=== PATIENT | female | born 1970 | race Caucasian/White ===

== ENCOUNTER → 2019-10-10 15:10 | Outpatient (BNVA) | payer MEDICAID, SELFPAY | PROVIDERS: PCP Nurse Practitioner; Visit Provider Nurse Practitioner | DX: I10 Essential (primary) hypertension (principal); F41.9 Anxiety disorder, unspecified; M51.37 Other intervertebral disc degeneration, lumbosacral region | CPT/HCPCS: 80053; 85025 ==

== ENCOUNTER → 2019-10-29 14:56 | Outpatient (BNVA) | payer MEDICAID, SELFPAY | PROVIDERS: PCP Nurse Practitioner; Visit Provider Nurse Practitioner | DX: F41.9 Anxiety disorder, unspecified (principal); D72.829 Elevated white blood cell count, unspecified; E83.52 Hypercalcemia | CPT/HCPCS: 80053; 85025 ==

== ENCOUNTER → 2020-01-03 09:08 | Outpatient (BNVA) | payer MEDICAID, SELFPAY | PROVIDERS: PCP Nurse Practitioner; Visit Provider Nurse Practitioner | DX: E78.5 Hyperlipidemia, unspecified (principal); I10 Essential (primary) hypertension; F41.9 Anxiety disorder, unspecified; M51.37 Other intervertebral disc degeneration, lumbosacral region | CPT/HCPCS: 80053; 80061 ==

== ENCOUNTER → 2020-04-27 15:15 | Outpatient (BNVA) | payer MEDICAID, SELFPAY | PROVIDERS: PCP Nurse Practitioner; Visit Provider Nurse Practitioner | DX: I10 Essential (primary) hypertension (principal) | CPT/HCPCS: 80053; 80061; 85025 ==

== ENCOUNTER 2020-05-20 11:57 | Emergency (ER) | payer MEDICAID, SELFPAY ==
--- NOTE | 2020-05-20 12:06 | XR_ITS ---
WS: [id number] XR foot LT min 3V* [id number] REASON FOR EXAM: left foot pain FINDINGS: No fracture or dislocation identified. No focally no focal bony abnormality. On the lateral view of the foot there is calcification/ossification bridging the distal carpal row wi th the base of one of the metatarsals. On the oblique view of the foot this may involve the base of t he second metatarsal and the third cuneiform. No soft tissue abnormality. XR/XR foot LT min 3V* [id number] IMPRESSION: Abnormality as described above which is of uncertain clinical significance. Thi s could represent calcification in the Lisfranc ligament or possibly a partial coalition. If pain is related to the dorsum of the foot in the region of the se cond metatarsal this could be of clinical importance.
--- NOTE | 2020-05-20 12:06 | XR_ITS ---
WS: [id number] XR wrist LT min 3V* [id number] REASON FOR EXAM: left wrist pain FINDINGS: No cortical disruption or other focal bony abnormality is identified. The joint spaces of the wrist are well preserved. No soft tissue abnormality identified. XR/XR wrist LT min 3V* [id number] IMPRESSION: No acute abnormality identified.
[2020-05-20 12:08] VITALS: PULSE 81; O2SAT 98; BMI 22.7
--- NOTE | 2020-05-20 12:33 | W.ED.FALL ---
HPI - Fall General: Chief Complaint: Fall Stated Complaint: FALL L FOOT PAIN Time Seen by Provider: 05/20/20 12:06 History of Present Illness: HPI Narrative: 50-year-old female patient presents to the emergency department by EMS. She reports a fall, 10 days ago, complaining of left foot pain and left wrist pain. She reports attempted to catch herself with her left wrist. She has noted bruising to the left wrist and swelling to the left foot. She reports has ambulated at home, left foot pain continues with ambulation and continues to swell. She denies head injury, denies neck pain. Reports did not hit her head or lose consciousness with fall. MD complaint: fall Onset (ago): day(s) (10-11 days ago) Fall from: standing Fall witnessed: no Place fall occurred: home Loss of consciousness: None Prolonged down time: no Symptoms prior to fall: none Context: tripped/slipped Location of injury - extremities: Left: arm and foot Severity: moderate Severity scale (1-10): 4 Quality: burning, dull and aching Associated symptoms-after fall: Reports difficulty walking (Due to foot pain); Denies abdominal pain, chest pain or headache(s) Review of Systems General: Reports: 10 or more systems reviewed and unremarkable except in HPI and below Const: Denies: fever(s), chills or diaphoresis Eyes: Denies: blurry vision or eye redness ENMT: Denies: throat pain, dental pain or disequilibrium Card: Denies: chest pain, palpitations or irregular heart rhythm Resp: Denies: dyspnea, productive cough, non-productive cough or wheezing GI: Denies: abdominal pain, nausea or vomiting : Denies: difficulty voiding or dysuria Musc: Denies: back pain Skin/Breast: Denies: rash or pruritus Neuro: Reports: difficulty walking (Due to foot pain); Denies: headache(s), weakness in extremities, frequent falls, behavioral changes or Slurred speech present Arnaud/Lymph: Denies: easy bruising [facility] ED PFSH: Medical History (Updated 05/20/20 @ 12:48 by KEVIN Moyer) Anxiety COPD, mild DDD (degenerative disc disease), lumbosacral Essential (primary) hypertension Hyperlipidemia, unspecified Personal history of nicotine dependence Surgical History History of bilateral tubal ligation Family History Other Cancer Hypertension Denies family history of Bleeding disorder Social History Smoking and tobacco status: current every day smoker Second hand smoke exposure: Yes Smoking risk assessment/counseling performed?: Yes Alcohol intake: unknown Desire information about alcohol rehabilitation?: No Counseling given: No Desire information about substance/drug rehabilitation?: No Counseling given: No Adopted: No Caregiver/support person: No Lives independently: Yes Household members: other Marital status: Single Number of children: 1 service: No History of recent travel: No Current gender identity: Female Physical Exam Const: COMMON NORMALS: no acute distress, patient oriented x3, healthy appearing and alert GENERAL APPEARANCE: cooperative, comfortable and well hydrated HENMT: COMMON NORMALS: normocephalic, Normal external nose present and moist oral mucous membranes HEAD & SCALP: normocephalic NOSE: Normal external nose present Eye: COMMON NORMALS: Equal, round and reactive pupils present and EOMs intact bilaterally GENERAL EYE: appearance normal, both eyes and all related structures PUPIL: Yes Equal, round and reactive pupils present Neck/C-Spine: COMMON NORMALS: full ROM and no lymphadenopathy GENERAL: Yes normal visual inspection and Yes trachea midline CERVICAL SPINE: Yes cervical ROM normal Lymph: LYMPHATIC: no lymphadenopathy noted Chest: COMMONS NORMALS: normal inspection of the chest Resp: COMMON NORMALS: normal respiratory effort and clear to auscultation bilaterally AUSCULTATION: clear to auscultation bilaterally Cardio: COMMON NORMALS: regular rhythm, S1 normal heart sound present and S2 normal heart sound present RHYTHM: regular rhythm HEART SOUNDS: S1 normal heart sound present and S2 normal heart sound present GI: COMMON NORMALS: Soft to palpation and non-tender INSPECTION: Yes normal to inspection PALPATION: Yes Soft to palpation : COMMON NORMALS: Yes no CVA tenderness BLADDER/KIDNEY EXAM: Yes no CVA tenderness Back/Pelvis: COMMON NORMALS: no CVA tenderness and thoracic and lumbar spine normal to inspection Extremity: COMMON NORMALS: normal to inspection and capillary refill normal GENERAL: Yes normal exam except as noted RIGHT UPPER EXTREMITY: Yes wrist Right wrist: Yes inspection (Ecchymosis noted to the left radial styloid area), Yes palpation (Tenderness to area of ecchymosis), Yes ROM (Flexion and extension supination pronation noted) and Yes neurovascular exam (Distally intact without deficit) LEFT LOWER EXTREMITY: Yes foot & digits Left foot and digits: Yes inspection (Edema noted to the proximal and distal foot, dorsal side), Yes palpation (Area of swelling noted to the first MTP lateral foot), Yes ROM (Full range of motion to all digits of the left foot, pain with palpation dorsally, ankle with flexion extension but reproduces pain to the left foot.) and Yes neurovascular exam (Distally intact.) OTHER: pain to the plantar surface of the 3rd-5th MTP - no erythema, increased warmth or discoloration, slight edema present plantar and dorsal Neuro: COMMON NORMALS: patient oriented x3 and no focal motor deficits SENSORIUM/ORIENTATION: Yes alert Psych: COMMON NORMALS: mental status grossly normal, Normal thought process present and cooperative ACTIVITY/MOTOR BEHAVIOR: Yes appropriate eye contact THOUGHT PROCESS: Normal thought process present Skin: COMMON NORMALS: no rashes or lesions noted and turgor normal GENERAL SKIN EXAM: no rashes or lesions noted and turgor normal Course ED course: 50-year-old female patient presents to the emergency room with 10-day onset of left foot pain and left wrist pain following fall she sustained. She reports concern is left foot swelling continues and experiences pain with ambulation. X-ray left wrist without fracture, left foot series revealed abnormality of calcification in the Lisfranc ligament. Podiatry, Dr. Carter out of town, referral was placed with social work supervisor for patient to have appointment. Discussed with patient findings of her foot x-ray, she agrees to follow-up with Dr. Carter at next available appointment. She was given postop shoe and crutches with recommendation to refrain placing pressure on the left foot. She is advised to keep the left foot elevated to help with swelling and pain. Verbalized understanding, agrees to return to emergency department if she develops worsening symptoms such as redness, increased swelling despite elevation or redness of the left leg with swelling. Questions were answered, Vital Signs: Vital signs: Vital Signs Pulse Rate 68 05/20/20 14:40 Pulse Oximetry 96 05/20/20 14:40 MDM - Fall Imaging Data^: Xray Ortho: Radiologist's impression: [address] [place] [address] XRay Report Signed Patient: Guera Mills Unit #: [id number] : 1970 Age/Sex: 50 / F ADM Date: 05/20/20 Loc: ER Room/Bed: Attending Dr: Ordering Provider/Ordering MD: Ita Jack Date of Service: 05/20/20 Procedure(s): XR wrist LT min 3V* [id number] Accession Number(s): [id number] Report Number: [id number] WS: [id number] XR wrist LT min 3V* 32092 REASON FOR EXAM: left wrist pain FINDINGS: No cortical disruption or other focal bony abnormality is identified. The joint spaces of the wrist are well preserved. No soft tissue abnormality identified. XR/XR wrist LT min 3V* [id number] IMPRESSION: No acute abnormality identified. Dictated By: Anthony Price Jr, MD Signed By: Anthony Price Jr, MD Signed Date/Time: 05/20/20 1240 DD/ 1238 Other Imaging: Radiologist's impression: [address] [place] [address] XRay Report Signed Patient: Guera Mills Unit #: [id number] : 1970 Age/Sex: 50 / F ADM Date: 05/20/20 Loc: ER Room/Bed: Attending Dr: Ordering Provider/Ordering MD: Ita Jack Date of Service: 05/20/20 Procedure(s): XR foot LT min 3V* [id number] Accession Number(s): [id number] Report Number: [id number] WS: [id number] XR foot LT min 3V* [id number] REASON FOR EXAM: left foot pain FINDINGS: No fracture or dislocation identified. No focally no focal bony abnormality. On the lateral view of the foot there is calcification/ossification bridging the distal carpal row with the base of one of the metatarsals. On the oblique view of the foot this may involve the base of the second metatarsal and the third cuneiform. No soft tissue abnormality. XR/XR foot LT min 3V* [id number] IMPRESSION: Abnormality as described above which is of uncertain clinical significance. This could represent calcification in the Lisfranc ligament or possibly a partial coalition. If pain is related to the dorsum of the foot in the region of the second metatarsal this could be of clinical importance. Dictated By: Anthony Price Jr, MD Signed By: Anthony Price Jr, MD Signed Date/Time: 05/20/20 1238 DD/ 1229 Discharge Plan Discharge Patient Disposition: Home Clinical Impression: Acute foot pain Qualifiers: Laterality: left Qualified Code(s): M79.672 - Pain in left foot Contusion of left wrist Qualifiers: Encounter type: initial encounter Qualified Code(s): S60.212A - Contusion of left wrist, initial encounter Contusion of left foot Qualifiers: Encounter type: initial encounter Qualified Code(s): S90.32XA - Contusion of left foot, initial encounter Condition: Stable Prescriptions: New naproxen 500 mg tablet 500 mg PO BID PRN (Reason: pain) Qty: 20 RF: 0 No Action albuterol sulfate [ProAir HFA] 90 mcg/actuation HFA aerosol inhaler 2 puff INHALATION Q6H PRN (Reason: shortness of breath or wheezing) Qty: 8.5 RF: 2 atorvastatin [Lipitor] 20 mg tablet 20 mg PO DAILY Qty: 30 RF: 2 gabapentin 400 mg capsule 400 mg PO BID Qty: 60 RF: 2 clonazepam [Klonopin] 0.5 mg tablet 0.5 mg PO BID Qty: 60 RF: 2 lisinopril 10 mg tablet 10 mg PO DAILY Qty: 30 RF: 2 propranolol 20 mg tablet 20 mg PO BID Qty: 60 RF: 2 venlafaxine 150 mg capsule,extended release 24hr 150 mg PO DAILY Qty: 30 RF: 2 [id number] 3.5-10,000-1 mg/mL-unit/mL-% drops,suspension 4 drop EAR-BOTH TID 10 Days Qty: 10 RF: 0 Discharge Orders: Discharge Order (Routine); Ordered 05/20/20 Ordered By: Ita Jack Referrals: Alex Bach, [facility] [Primary Care Provider] - Discharge Diet: Usual diet Discharge Activity: Limit activity as instructed and Use walker/crutches as instructed Patient Instructions: Foot Sprain (ED), Sprains - Wrist Activity Restrictions/Additional Instructions: Referral to podiatry pending, social service will be contacting you with appointment Postop shoe will help with pain, avoid walking barefoot Return to the emergency department if you develop redness, fever or increased pain of the foot or redness swelling of the left calf Keep the left foot elevated to help reduce swelling Limit ambulation/pressure of the left foot to help with pain Cool compresses/alternate with warm moist heat to the area of pain, this may help with pain and swelling Discharge Date/Time: 05/20/20 13:55 Coding Level of Care Code ED Collision Technician for Alf Fwmonica Exam Comprehensive
--- NOTE | 2020-05-20 13:44 | DCPLANNER ---
marina manager was asked to schedule a follow up appointment for patient with ortho. marina manager called the ortho clinic, spoke with Brenda, gave clinic patients information. marina manager was told that patients information would be printed and reviewed. Clinic will call patient with appointment information.
[2020-05-20 14:40] VITALS: PULSE 68; O2SAT 96
--- NOTE | 2020-05-22 14:37 | DCPLANNER ---
Patient has a follow up appointment scheduled for , May 28, 2020 at 9:[address] Carter. Clinic will call patient with appointment information.
--- NOTE | 2020-06-05 18:21 | DCPLANNER ---
Patient had a follow up appointment with ortho - patient did attend appointment.
== END 2020-05-20 13:55 | disposition home or self-care (01) ==
PROVIDERS: Emergency Provider Nurse Practitioner Family; PCP Nurse Practitioner
DX: S90.32XA Contusion of left foot, initial encounter (principal); S60.212A Contusion of left wrist, initial encounter; J44.9 Chronic obstructive pulmonary disease, unspecified; I10 Essential (primary) hypertension; E78.5 Hyperlipidemia, unspecified; F17.210 Nicotine dependence, cigarettes, uncomplicated; W19.XXXA Unspecified fall, initial encounter
CPT/HCPCS: 12345; 73110; 73630; 99281; 99283; E0114

== ENCOUNTER → 2020-06-03 10:55 | Outpatient (BNVA) | payer MEDICAID, SELFPAY | PROVIDERS: PCP Nurse Practitioner; Visit Provider Podiatrist Foot & Ankle Surgery | DX: M79.672 Pain in left foot (principal); M21.612 Bunion of left foot | CPT/HCPCS: 73630 ==

== ENCOUNTER 2020-06-11 11:11 | Outpatient (CLI) | payer MEDICAID, SELFPAY | END 2020-06-11 11:12 | disposition home or self-care (01) | LOC: SPT 11:11 | PROVIDERS: PCP Nurse Practitioner; Visit Provider Podiatrist Foot & Ankle Surgery | DX: Z46.89 Encounter for fitting and adjustment of other specified devices (principal); S90.32XD Contusion of left foot, subsequent encounter; X58.XXXD Exposure to other specified factors, subsequent encounter | CPT/HCPCS: 97760; L4361 ==

== ENCOUNTER → 2020-11-24 15:41 | Outpatient (BNVA) | payer MEDICAID, SELFPAY | PROVIDERS: PCP Nurse Practitioner; Visit Provider Nurse Practitioner | DX: I10 Essential (primary) hypertension (principal); F41.9 Anxiety disorder, unspecified; J44.9 Chronic obstructive pulmonary disease, unspecified; Z87.891 Personal history of nicotine dependence; E78.5 Hyperlipidemia, unspecified; M51.37 Other intervertebral disc degeneration, lumbosacral region | CPT/HCPCS: 80053; 80061; 81003; 84443; 85025; 87077; 87086; 87184 ==

== ENCOUNTER 2021-01-28 11:42 | Outpatient (CLI) | payer MEDICAID, SELFPAY ==
--- NOTE | 2021-01-28 12:00 | MM_ITS ---
WS: [id number] BILATERAL DIGITAL DIAGNOSTIC MAMMOGRAM MAMMOGRAPHY WITH CAD CLINICAL INFORMATION: N63.20 - Unspecified lump in the left breast, unspecified... COMPARISON: 3 TECHNIQUE: Bilateral CC, MLO, and ML views. FINDINGS: The breasts are composed of heterogeneous fibroglandular density, which can limit the detection of sm all underlying mass lesions. Irregular spiculated focal asymmetric density upper outer left breast me asuring 2.7 x 2.9 cm x 1.9 cm in the area of palpable concern. Associated clustered punctate calcific ations. Findings suspicious for neoplasm. Ultrasound is pending. ULTRASOUND BREAST LEFT TECHNIQUE: Ultrasound left breast focused area of concern. CLINICAL INFORMATION: N63.20 - Unspecified lump in the left breast, unspecified... FINDINGS: Ultrasound left breast at the 2:00 position. There is an irregular solid shadowing hypoechoic mass wi th vascularity. This measures approximately 2.3 x 3.4 x 1.8 cm suspicious for neoplasm. Recommend fur ther evaluation with ultrasound-guided biopsy. Ultrasound left axilla shows several lymph nodes the largest lymph node measures 1.8 x 1.5 x 1.0 cm w ith preserved fatty hilum. This also could be sampled at the time of breast biopsy. MM/[place] [id number] IMPRESSION: BI-RADS: 5-Highly Suggestive of Malignancy FOLLOW UP: US Guided Biopsy Recommended RECOMMEND ULTRASOUND-GUIDED BIOPSY LEFT BREAST AND LEFT AXILLA.
--- NOTE | 2021-01-28 12:11 | US_ITS ---
WS: [id number] BILATERAL DIGITAL DIAGNOSTIC MAMMOGRAM MAMMOGRAPHY WITH CAD CLINICAL INFORMATION: N63.20 - Unspecified lump in the left breast, unspecified... COMPARISON: 3 TECHNIQUE: Bilateral CC, MLO, and ML views. FINDINGS: The breasts are composed of heterogeneous fibroglandular density, which can limit the detection of sm all underlying mass lesions. Irregular spiculated focal asymmetric density upper outer left breast me asuring 2.7 x 2.9 cm x 1.9 cm in the area of palpable concern. Associated clustered punctate calcific ations. Findings suspicious for neoplasm. Ultrasound is pending. ULTRASOUND BREAST LEFT TECHNIQUE: Ultrasound left breast focused area of concern. CLINICAL INFORMATION: N63.20 - Unspecified lump in the left breast, unspecified... FINDINGS: Ultrasound left breast at the 2:00 position. There is an irregular solid shadowing hypoechoic mass wi th vascularity. This measures approximately 2.3 x 3.4 x 1.8 cm suspicious for neoplasm. Recommend fur ther evaluation with ultrasound-guided biopsy. Ultrasound left axilla shows several lymph nodes the largest lymph node measures 1.8 x 1.5 x 1.0 cm w ith preserved fatty hilum. This also could be sampled at the time of breast biopsy. US/US breast LT limited* [id number] IMPRESSION: BI-RADS: 5-Highly Suggestive of Malignancy FOLLOW UP: US Guided Biopsy Recommended RECOMMEND ULTRASOUND-GUIDED BIOPSY LEFT BREAST AND LEFT AXILLA.
== END 2021-01-28 11:43 | disposition home or self-care (01) ==
LOC: RADSHAW 11:44
PROVIDERS: PCP Nurse Practitioner; Visit Provider Nurse Practitioner
DX: N63.20 Unspecified lump in the left breast, unspecified quadrant (principal)
CPT/HCPCS: 76642; 77066

== ENCOUNTER 2021-02-18 12:42 | Outpatient (CLI) | payer MEDICAID, SELFPAY ==
--- NOTE | 2021-02-18 13:00 | US_ITS ---
WS: [id number] ULTRASOUND-GUIDED LEFT BREAST BIOPSY HISTORY: Left Breast Mass COMPARISON: 01/28/2021 Procedure, risks and complications are explained to the patient. Medications are reviewed. Consent is obtained. The mass in the LEFT breast is localized with ultrasound. Mass localized to 2:00. Skin is cleansed wi th ChloraPrep and anesthetized with 1% buffered lidocaine. Small dermatome is made. Under sterile con ditions mass is biopsied with a 14-gauge Achieve needle. Patient refused additional biopsies after th e initial biopsy due to pain. Patient admitted to be anesthetized to sleep for this procedure. Francis t has elected not to continue with biopsy. Breast tissue marker (Souqalmal ultrasound enhanced ribbon): None. Patient terminated study before clip or biopsy could be completed. Patient refused additional biopsy. Patient is instructed to return to [facility] or call with any concerns. US/[place] [id number] IMPRESSION: 1. Limited LEFT breast core needle biopsy mass at 2:00. PATHOLOGY: Poorly differentiated invasive ductal carcinoma. Ancillary studies p ending. RECOMMENDATION: Surgical and oncologic follow-up. Patient refused additional biopsy attempts after the first was performed. Latrice nt describes excruciating pain. No lymph node biopsy performed as patient refused additional imaging. The lymph nodes did appear normal in the axilla. Normal fatty darrell. There is no one disc rete nodule to target for biopsy if the patient had permitted.
[2021-02-24 05:26] LABS: Miscellaneous Test See Scanned Lab Rpt
== END 2021-02-18 12:43 | disposition home or self-care (01) ==
PROVIDERS: PCP Nurse Practitioner; Visit Provider Nurse Practitioner
DX: C50.412 Malignant neoplasm of upper-outer quadrant of left female breast
CPT/HCPCS: 19083; 88305; 88361; 88367; 88374

== ENCOUNTER 2021-07-05 09:47 | Outpatient (CLI) | payer MEDICAID, SELFPAY ==
--- NOTE | 2021-07-05 15:11 | ONC CON_ITS ---
Dr. Torres New Patient Note Patient: Guera Mills Unit #: [id number]: 1970 Dicatated By: Jules Torres M.D.Date of Visit: Jul 05, 2021 Onc MED New Patient/Consult Referring Physician: Dr. SHANNA ANN M.D. History of Present Illness: Ms. Guera Mills, is a 51-year-old female who was diagnosed with left breast cancer in February 2021 and at that time her left breast ultrasound-guided biopsy done on February 18, 2021 showed poorly differentiated invasive ductal carcinoma grade 3, ER 99%, SD 45% and HER-2/carin 3+ positive, as per patient she went to see medical oncologist in [facility] and chemotherapy was recommended along with Port-A-Cath placement to facilitate chemotherapy infusion, patient said she got scared of losing here and getting something 'stuck' in her neck, she means Port-A-Cath placement. And decided not to pursue any sort of treatment until recently when she went to see her PMD and then she was referred to Dr. Ann whom she saw on June 25, 2021, patient was referred to medical oncology for further discussion and planning. Patient denies any left breast nipple discharge, denies any new bony pains, denies any weight loss, denies any headaches blurred vision double vision, denies any significant change in left breast mass, denies any left axillary fullness, denies any hemoptysis or hematemesis, denies any jaundice. Patient has history of anxiety disorder, mild COPD, degenerative disc disease involving lumbar sacral area, hypertension. Past Medical History: Ms. Mills's medical history consists of anxiety, chronic obstructive pulmonary disease, degenerative disease of the spine, hyperlipidemia, and hypertension. Past Surgical History: Ms. Mills's surgical/procedural history consists of breast biopsy, tubal ligation, covid vaccine #2 moderna in 2020, covid vaccine #1 moderna in 2020, and colonoscopy in 2010. Medications: Albuterol Sulfate HFA 2 Puff(s) (of 108 (90 base) mcg/act) Aerosol, solution Inhalation q 6 hours PRN, Atorvastatin Calcium 1 Tablet (of 20 mg) Oral daily, clonazePAM 1 Tablet (of 0.5 mg) Oral b.i.d., Effexor XR 1 Capsule (of 150 mg) Capsule SR 24 HR Oral daily, Lisinopril 1 Tablet (of 20 mg) Oral daily, Propranolol HCl 1 Tablet (of 20 mg) Oral b.i.d. Allergies: Morphine Sulfate Social History: Ms. Mills is . She is a daily smoker. She has indicated exposure to the following products: cigarettes. Family History: There is no documented family history. Review Of Symptoms: Review of Systems is not available for this patient. Vital Signs: Performed on Jul 05, 2021 13:18: 3, 6, 22.95, 1.73 sq.m, 66 in, 99 %, 73 /min, 18 /min, 105/72 mm(hg), 97.5 F (LOW), and 142.2 lbs (HIGH). Performance Status: 0 - Fully active, able to carry on all predisease activities without restrictions. (ECOG) Physical Examination: Respiratory - Lungs are clear to auscultation, Cardiovascular - Regular rate and rhythm of heart, Gastrointestinal - Soft, bowel sounds present. Left breast exam shows about 4 cm mass on the left side of subareolar area and palpable left axillary lymphadenopathy, No nipple discharge or retraction Lab/Imaging: Most recent lab results are not available for this patient. Impression: Poorly differentiated invasive ductal carcinoma, grade 3 per ultrasound-guided left breast biopsy done on February 18, 2021, final pathology report shows ER 99%, SD 45%, HER-2/carin 3+ positive and specimen was positive for HER-2 overexpression and gene over amplification. Patient went to [facility] to see a medical oncologist for evaluation, as per patient she was recommended chemotherapy and Port-A-Cath placement, patient got concerned about hair loss and Port-A-Cath placement and decided not to seek any care at that time. Plan: Discussed with patient regarding her disease status and treatment options, patient has locally advanced disease with palpable left axillary lymph nodes, it has been over 4 months since she been diagnosed with breast cancer, patient has aggressive disease, HER-2/carin positive ER strongly positive but SD moderately positive. At this point, will consider CT PET scan, if it shows local regional disease e.g. no distant mets, then will consider neoadjuvant chemotherapy with dose dense Adriamycin Cytoxan every 2 weeks x4 followed by Herceptin Taxol or Taxotere/Perjeta followed by surgical evaluation. Discussed with patient in detail, all the questions were answered, patient may consider systemic therapy, but , For the time being, has agreed for CT PET scan, we will schedule her for CT PET scan and then she will return to clinic after CT PET scan with CBC CMP and BRCA 1 and 2, and for further discussion. Signed By: Jules Torres M.D. <<Signature on File>>
== END 2021-07-05 09:48 | disposition home or self-care (01) ==
PROVIDERS: PCP Nurse Practitioner; Visit Provider Internal Medicine Hematology & Oncology
DX: C50.812 Malignant neoplasm of overlapping sites of left female breast (principal); Z17.0 Estrogen receptor positive status [ER+]; Z79.899 Other long term (current) drug therapy
CPT/HCPCS: 99205

== ENCOUNTER → 2021-11-11 15:10 | Outpatient (BNVA) | payer MEDICAID, SELFPAY | PROVIDERS: PCP Nurse Practitioner; Visit Provider Nurse Practitioner | DX: E55.9 Vitamin D deficiency, unspecified (principal); E78.5 Hyperlipidemia, unspecified; I10 Essential (primary) hypertension | CPT/HCPCS: 80053; 80061; 82306; 82607; 84443; 85025 ==

== ENCOUNTER 2022-02-10 13:25 | Oncology outpatient (recurring) (ONCR) | payer MEDICAID, SELFPAY ==
[2022-02-10 13:47] LABS: Basophils # 0.1 10^3/uL (0.0-0.1); Basophils % 0.8 %; Eosinophils # 0.4 10^3/uL (0.0-0.8); Eosinophils % 4.5 %; Hematocrit 39.4 % (37.0-47.0); Hemoglobin 12.6 g/dL (11.5-15.3); Lymphocytes # 3.2 10^3/uL (0.8-4.8); Lymphocytes % 34.5 %; Mean Corpuscular Hemoglobin 28.6 pg (28.0-34.0); Mean Corpuscular Volume 89.5 fl (81-99); Mean Platelet Volume 10.2 fL (7.4-10.4); Monocytes # 0.5 10^3/uL (0.2-0.9); Monocytes % 5.8 %; Neutrophils # 5.04 10^3/uL (1.8-7.7); Neutrophils % 54.1 %; Nucleated Red Blood Cells % 0 %; Platelet Count 329 10^3/cmm (130-400); Red Cell Distribution Width 13.2 % (12.1-15.1); White Blood Count 9.3 10^3/uL (4.0-10.0)
[2022-02-10 14:02] LABS: Alanine Aminotransferase 8 U/L (0-33); Albumin Level 4.3 g/dL (3.5-5.2); Alkaline Phosphatase 118 IU/L (35-105); Anion Gap 11.7 (5-19); Aspartate Amino Transferase 13 U/L (0-32); Blood Urea Nitrogen 12 mg/dL (6-20); Calcium 8.7 mg/dL (8.5-10.5); Carbon Dioxide 27 mmol/L (22-29); Chloride 104 mmol/L (98-107); Globulin 2.6 g/dL (1.3-4.6); Glomerular Filtration Rate 31.6 mL/min (90-130); Glucose 83 mg/dL (65-115); Osmolality Calculated 287 mOsm/kg (285-295); Potassium 3.7 mmol/L (3.5-5.1); Sodium 139 mmol/L (136-145); Total Bilirubin 0.2 mg/dL (0.15-1.2); Total Protein 6.9 g/dL (6.6-8.7)
== END 2022-02-10 23:59 | disposition home or self-care (01) ==
PROVIDERS: PCP Nurse Practitioner; Visit Provider Internal Medicine Hematology & Oncology
DX: C50.912 Malignant neoplasm of unspecified site of left female breast (principal); Z17.0 Estrogen receptor positive status [ER+]; J44.9 Chronic obstructive pulmonary disease, unspecified; F17.210 Nicotine dependence, cigarettes, uncomplicated; M51.37 Other intervertebral disc degeneration, lumbosacral region
CPT/HCPCS: 36415; 80053; 85025; 99214

== ENCOUNTER → 2022-03-14 10:27 | Outpatient (BNVA) | payer MEDICAID, SELFPAY | PROVIDERS: PCP Nurse Practitioner; Visit Provider Surgery | DX: C50.912 Malignant neoplasm of unspecified site of left female breast (principal); Z95.828 Presence of other vascular implants and grafts | CPT/HCPCS: 99214 ==

== ENCOUNTER 2022-03-18 09:44 | Day surgery (SDC) | payer MEDICAID, SELFPAY ==
[2022-03-18] VITALS (15 sets, daily range): BP systolic 113–158; BP diastolic 84–118; PULSE 69–101; RESP 13–18; TEMP 36.2–36.7; O2SAT 92–99; BMI 20.3
--- NOTE | 2022-03-18 | SCC_ITS ---
Procedure done: 1. Placement of PowerPort in the right internal jugular vein 2. Fluoroscopic guidance and interpretation for placement of catheter 3. Ultrasound guidance to access the right internal jugular vein 31.2 seconds of fluoroscopic guidance, for a cumulative dose of 3.01 mGy, was provided to Dr. Burgos by the radiology department. C-arm images of the chest were saved for the patient's permanent record. [facility]
--- NOTE | 2022-03-18 08:34 | ANES.PREANE2 ---
Pre-Anesthetic Assessment Height/Weight: Height 1.7 m Operation Date: 03/18/22 11:25 Proposed Procedures p Portacath Placement 35713,C50.912(Not Applicable) - Bobo Burgos MD Social Tobacco Pulmonary Chronic Obstructive Pulmonary Disease CV/HEM Hypertension [facility] Osteoarthritis/DJD Breast cancer Neuropsych Anxiety and Headache Anesthetic Plan ASA status: 3 Medications/Allergies Home Medications Medication Instructions Recorded Confirmed Last Taken Type meclizine 25 mg tablet 25 mg PO BID PRN nausea #30 tabs 12/10/21 03/14/22 Unknown Rx albuterol sulfate 90 mcg/actuation 2 puff inhalation Q6H PRN 02/24/22 03/14/22 Unknown Rx aerosol inhaler (ProAir HFA) shortness of breath or wheezing #8.5 grams amitriptyline 25 mg tablet See Rx Instructions PO .at bedtime 02/24/22 03/14/22 Unknown Rx #60 tabs clonazepam 0.5 mg tablet (Klonopin) 0.5 mg PO BID #60 tabs 02/24/22 03/14/22 Unknown Rx ergocalciferol (vitamin D2) 1,250 1,250 mcg PO .weekly #4 caps 02/24/22 03/14/22 Unknown Rx mcg (50,000 unit) capsule fenofibrate nanocrystallized 145 145 mg PO DAILY #30 tabs 02/24/22 03/14/22 Unknown Rx mg tablet (Tricor) hydrocortisone 2.5 % topical cream 1 applic [place] DAILY PRN hemorrhoids 02/24/22 03/14/22 Unknown Rx with perineal applicator #30 grams (Proctozone-HC) lisinopril 20 mg tablet 20 mg PO DAILY #30 tabs 02/24/22 03/14/22 Unknown Rx propranolol 20 mg tablet 20 mg PO BID #60 tabs 02/24/22 03/14/22 Unknown Rx venlafaxine 150 mg 150 mg PO DAILY #30 caps 02/24/22 03/14/22 Unknown Rx capsule,extended release 24 hr Allergies Allergy/AdvReac Type Severity Reaction Status Date / Time morphine Allergy Unknown vomit Verified 03/14/22 10:58 [facility] Medical History Anxiety COPD, mild DDD (degenerative disc disease), lumbosacral 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 Essential (primary) hypertension Hyperlipidemia, unspecified Insomnia Migraine Personal history of nicotine dependence Vitamin D deficiency Surgical History History of bilateral tubal ligation History of colonoscopy 2010 Family History Mother CAD (coronary artery disease) Other Cancer Chronic kidney disease (CKD) Hyperlipidemia Hypertension Psychiatric illness Stroke Suicide Denies family history of Diabetes Clotting disorder Dementia Anesthesia complication Bleeding disorder Lung disease Social History Smoking and tobacco status: current every day smoker Second hand smoke exposure: Yes Smoking risk assessment/counseling performed?: Yes Alcohol intake: never Desire information about alcohol rehabilitation?: No Counseling given: No Desire information about substance/drug rehabilitation?: No Counseling given: No Adopted: No Caregiver/support person: No Lives independently: Yes Household members: other Marital status: Single Number of children: 1 service: No History of recent travel: No Current gender identity: Female Data Anesthesia Cardiac Studies: No Data to Display
--- NOTE | 2022-03-18 09:45 | W.PM.OPSFHP ---
Same Day Surgery H&P Indication for Procedure/HPI DATE OF PROCEDURE: March 18, 2022 CHIEF COMPLAINT/INDICATIONFOR SURGICAL PROCEDURE: Breast cancer requiring port placement PREOP DIAGNOSIS: Breast cancer PLANNED PROCEDURE: Operation Date: 03/18/22 11:25 Proposed Procedures p Portacath Placement 55765,C50.912(Not Applicable) - Bobo Burgos MD Medications/Allergies* Allergies/Adverse Reactions Allergy/AdvReac Type Severity Reaction Status Date / Time morphine Allergy Unknown vomit Verified 03/14/22 10:58 Pertinent History/Comorbid Conditions* Medical History (Updated 02/27/22 @ 12:47 by TYLER Nieto-C) Anxiety COPD, mild DDD (degenerative disc disease), lumbosacral 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 Essential (primary) hypertension Hyperlipidemia, unspecified Insomnia Migraine Personal history of nicotine dependence Vitamin D deficiency Surgical History (Updated 06/25/21 @ 11:31 by Bobo Burgos MD) History of bilateral tubal ligation History of colonoscopy 2010 Family History (Updated 02/10/22 @ 14:37 by Joy Amos LPN) CAD (coronary artery disease) Mother Hyperlipidemia Psychiatric illness Chronic kidney disease (CKD) Suicide Cancer Hypertension Stroke Denies family history of Diabetes Clotting disorder Dementia Anesthesia complication Bleeding disorder Lung disease Social History Smoking and tobacco status: current every day smoker Second hand smoke exposure: Yes Smoking risk assessment/counseling performed?: Yes Alcohol intake: never Desire information about alcohol rehabilitation?: No Counseling given: No Desire information about substance/drug rehabilitation?: No Counseling given: No Adopted: No Caregiver/support person: No Lives independently: Yes Household members: other Marital status: Single Number of children: 1 service: No History of recent travel: No Current gender identity: Female Pertinent Exam Findings alert, oriented x 3 and regular rate & rhythm Recommendations Surgery/Procedure today Coding Level of Care Code Acute 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
[2022-03-18] MEDS: sodium chloride 0.9% 1,000 ML 30 ML IV (10:35)
--- NOTE | 2022-03-18 10:49 | SC_ITS ---
WS: [id number] C-arm fluoroscopy for port placement, 03/18/2022 Clinical Data: intra-op Comparison: None. Findings: Dr. Burgos inserted a port via the right internal jugular vein. The port ends in the superior vena ca va. SC/C-arm FL for CVA [id number] Impression: Insertion right internal jugular venous port.
--- NOTE | 2022-03-18 11:02 | P.ANESASSM_ITS ---
Pre-Anesthetic Assessment Height/Weight: Height 1.7 m Weight 58.967 kg Temp Pulse Resp BP Pulse Ox O2 Del Method 98.0 F 101 H 17 133/97 98 03/18/22 10:00 03/18/22 10:00 03/18/22 10:00 03/18/22 10:00 03/18/22 10:00 03/18/22 10:20 Preop Diagnosis: breast ca Operation Date: 03/18/22 11:25 Proposed Procedures p Portacath Placement 45237,C50.912(Not Applicable) - Bobo Burgos MD Familial anesthetic complications: none Was Beta Mamta taken within 24 hours: Yes Was Clonidine taken within 24 hours: N/A Last intake: Intake Last Liquid Date 03/18/22 Last Liquid Time 05:00 Last Solid Date 03/17/22 Last Solid Time 12:00 Last Intake: 04:00 Social Tobacco and No alcohol 1ppd pack(s) per day 35+ pack years Exam alert, oriented x 3, clear to auscultation bilaterally and regular rate & rhythm Airway Submandibular: within normal limits Cervical ROM: within normal limits Mallampati: Class II Dentition: chipped and loose Comments: Comments: multiple missing decayed Pulmonary None reported CV/HEM Hypertension Chronic Renal Insufficiency Hepatic None reported GI None reported Metabolic None reported breast CA Musc/skel Lower Back Pain and Osteoarthritis/DJD Neuropsych Anxiety, Bipolar and Depression Anesthetic Plan ASA status: 2 Anesthesia: MAC Risk of > 500 ml blood loss (7ml/kg in children): No Medications/Allergies Home Medications Medication Instructions Recorded Confirmed Last Taken Type meclizine 25 mg tablet 25 mg PO BID PRN nausea #30 tabs 12/10/21 03/14/22 Unknown Rx albuterol sulfate 90 mcg/actuation 2 puff inhalation Q6H PRN 02/24/22 03/14/22 U nknown Rx aerosol inhaler (ProAir HFA) shortness of breath or wheezing #8.5 grams amitriptyline 25 mg tablet See Rx Instructions PO .at bedtime 02/24/22 03/14/22 Unknown Rx #60 tabs clonazepam 0.5 mg tablet (Klonopin) 0.5 mg PO BID #60 tabs 02/24/22 03/14/22 Unknown Rx ergocalciferol (vitamin D2) 1,250 1,250 mcg PO .weekly #4 caps 02/24/22 03/14/22 Unknown Rx mcg (50,000 unit) capsule fenofibrate nanocrystallized 145 145 mg PO DAILY #30 tabs 02/24/22 03/14/22 Unknown Rx mg tablet (Tricor) hydrocortisone 2.5 % topical cream 1 applic [place] DAILY PRN hemorrhoids 02/24/22 03/14/22 Unknown Rx with perineal applicator #30 grams (Proctozone-HC) lisinopril 20 mg tablet 20 mg PO DAILY #30 tabs 02/24/22 03/14/22 Unknown Rx propranolol 20 mg tablet 20 mg PO BID #60 tabs 02/24/22 03/14/22 Unknown Rx venlafaxine 150 mg 150 mg PO DAILY 03/18/22 03/18/22 03/17/22 09:00 History capsule,extended release 24 hr (Effexor XR) Allergies Allergy/AdvReac Type Severity Reaction Status Date / Time morphine Allergy Unknown vomit Verified 03/18/22 10:07 Current Medications Generic Name Dose Route Start Last Admin Trade Name Freq PRN Reason Stop Dose Admin Sodium Chloride 1,000 mls @ 30 mls/hr 03/18/22 10:00 03/18/22 10:35 Sodium Chloride 0.9% IV 03/19/22 09:59 30 mls/hr .Q24H GERMAN Administration PFSH Anesthesia Medical History (Updated 03/18/22 @ 09:52 by Bobo Burgos MD) Anxiety COPD, mild DDD (degenerative disc disease), lumbosacral 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 Essential (primary) hypertension Hyperlipidemia, unspecified Insomnia Migraine Personal history of nicotine dependence Vitamin D deficiency Surgical History (Updated 03/18/22 @ 09:52 by Bobo Burgos MD) History of bilateral tubal ligation History of colonoscopy 2011 Port-A-Cath in place (03/18/22) Family History Mother CAD (coronary artery disease) Other Cancer Chronic kidney disease (CKD) Hyperlipidemia Hypertension Psychiatric illness Stroke Suicide Denies family history of Diabetes Clotting disorder Dementia Anesthesia complication Bleeding disorder Lung disease Social History Smoking and tobacco status: current every day smoker Second hand smoke exposure: Yes Smoking risk assessment/counseling performed?: Yes Alcohol intake: never Desire information about alcohol rehabilitation?: No Counseling given: No Desire information about substance/drug rehabilitation?: No Counseling given: No Adopted: No Caregiver/support person: No Lives independently: Yes Household members: other Marital status: Single Number of children: 1 service: No History of recent travel: No Current gender identity: Female Data Anesthesia Cardiac Studies: No Data to Display
[2022-03-18] MEDS: ceFAZolin 2,000 MG in sodium chloride 0.9% (plus) 50 ML 100 MG IV (11:10)
[2022-03-18 11:32] LABS: 25 Hydroxy Vitamin D 28 ng/mL (30-100)
[2022-03-18] MEDS: heparin, porcine 1,000 unit/mL INJ 10 mL 10000 UNIT IRRIGATION (11:35)
[2022-03-18] MEDS: lidocaine 2% INJ 20 mL INJECTION (11:35)
[2022-03-18] MEDS: sodium chloride 0.9% 250 mL Bag 100 ML XX (11:36)
--- NOTE | 2022-03-18 11:53 | XR_ITS ---
WS: [id number] Portable AP upright chest, 03/18/2022 Clinical Data: post-op Comparison: Portable chest, 07/07/2019. Findings: No nodules, masses or effusions are seen. The heart is normal. The pulmonary vascularity is not increased. No pneumonia or pneumothorax is seen. The right internal jugular venous Port-A-Cath e nds in the superior vena cava at the T4 level. XR/XR chest 1V portable [id number] Impression: Satisfactory position of right Port-A-Cath.
--- NOTE | 2022-03-18 12:00 | PM.OP ---
Operative Report Date of procedure: March 18, 2022 Pre-op diagnosis: Left breast cancer requiring central venous access for chemotherapy Post-op diagnosis: same Procedure done: 1. Placement of PowerPort in the right internal jugular vein 2. Fluoroscopic guidance and interpretation for placement of catheter 3. Ultrasound guidance to access the right internal jugular vein Pathology: none sent Surgeon: Bobo Burgos Anesthesia: MAC Condition: stable Disposition: PACU Procedure: The patient was taken to the Operating Room and the chest and neck bilaterally were prepped and draped in a sterile manner after the antibiotic had been administered and shoulder rolls had been placed. 1% lidocaine with 0.5% Marcaine was infiltrated at the side at the site of the planned around the left subclavian vein. I was unable to access the right subclavian vein. An ultrasound of the right internal jugular vein revealed patent flow, no thrombus. An introducer needle was then used to access the right internal jugular vein and after withdrawing blood syringe was removed and a guidewire passed under fluoroscopy into the superior vena cava. The site of the planned port was then marked on the chest and a 15 blade was used to make a 3 cm skin incision this was extended into the subcutaneous tissue using electrocautery and a subcutaneous pocket over the pectoralis fascia was created 2-0 Vicryl suture was used to suture the port to the pectoral fascia in the pocket on 3 sides. The catheter, after having been flushed with hep saline, was attached to the tunneler and a tunnel created between the port site and the internal jugular vein entry site. Under fluoroscopy the dilator sheath was passed over the guidewire into the proximal superior vena cava. The inner dilator was removed and the sheath left behind and the catheter was introduced through the peel-away sheath with the tip in the superior vena cava. The peel-away sheath was removed. The proximal end of the catheter was cut to the right size and was attached to the port. Using a Tovar needle the port was accessed, it withdrew blood easily and flushed easily. A final 5cc of heparin was used to flush the PowerPort. The subcutaneous tissue was approximated using interrupted 3-0 Vicryl sutures and the skin at the introducer site and the port site was closed using subcuticular running 4-0 Monocryl sutures. Surgical glue was applied and the patient was stable throughout the procedure. Fluoroscopic guidance and interpretation was performed for introduction of the guidewire in the right internal jugular vein, passage of dilator and placement of catheter tip in the distal superior vena cava
--- NOTE | 2022-03-18 12:15 | SUR.PHASEI ---
patient into pacu able to wake but drowsy. states no pain. on room air with sats at 97%. dressing to right upper chest dry and intact.
[2022-03-18] MEDS: fentaNYL 50 mcg/mL INJ 2mL IVP (12:20)
[2022-03-18] MEDS: HYDROmorphone 1 mg/mL INJ 1 mL 0.5 MG IVP (12:37)
[2022-03-18] MEDS: acetaminophen 1,000 MG/100 ML PIGGYBACK 400 MG IV (12:38)
--- NOTE | 2022-03-18 12:38 | PM.MISC ---
Miscellaneous Note Purpose of Documentation: Patient having muscle spasm in right posterior lateral neck with exquisite tender point at C5 posterior tubercle. Strain counterstrain not providing relief. APAP ordered. Will hold on ketorolac d/t renal dysfunction.
--- NOTE | 2022-03-18 13:47 | ANE.PACU2 ---
Inpatient post-anesthesia follow up: Airway intact: Yes Vital signs: Temperature 97.3 F Pulse Rate 82 Respiratory Rate 18 Blood Pressure 135/94 Pulse Oximetry 99 Oxygen Delivery Me thod Room Air Oxygen Flow Rate Fraction of Inspir ed Oxygen Hydration adequate: Yes Nausea and vomiting: No Pain level: 4 Mental status: Baseline
== END 2022-03-18 13:43 | disposition home or self-care (01) ==
PROVIDERS: PCP Nurse Practitioner; Visit Provider Surgery
PROC: (CPT 36561; principal; 2022-03-18 11:25)
DX: C50.912 Malignant neoplasm of unspecified site of left female breast (principal); F17.200 Nicotine dependence, unspecified, uncomplicated; I10 Essential (primary) hypertension; F41.9 Anxiety disorder, unspecified; J44.9 Chronic obstructive pulmonary disease, unspecified; E78.5 Hyperlipidemia, unspecified
CPT/HCPCS: 36561; 36415; 71045; 77001; 82306; C1788; J1170; J1644; J2250; J2704; J3010; J3490; J7030; J7050

== ENCOUNTER → 2022-04-15 10:33 | Outpatient (BNVA) | payer MEDICAID, SELFPAY | PROVIDERS: PCP Nurse Practitioner; Visit Provider Surgery | DX: C50.912 Malignant neoplasm of unspecified site of left female breast (principal) | CPT/HCPCS: 99213 ==

== ENCOUNTER 2022-05-09 13:30 | Oncology outpatient (recurring) (ONCR) | payer MEDICAID, SELFPAY | END 2022-05-13 23:59 | disposition home or self-care (01) | PROVIDERS: PCP Nurse Practitioner; Visit Provider Internal Medicine Hematology & Oncology | DX: C50.812 Malignant neoplasm of overlapping sites of left female breast (principal); Z45.2 Encounter for adjustment and management of vascular access device | CPT/HCPCS: 96523; 99214 ==

== ENCOUNTER → 2022-05-12 13:23 | Outpatient (BNVA) | payer MEDICAID, SELFPAY | PROVIDERS: PCP Nurse Practitioner; Visit Provider Surgery | DX: C50.912 Malignant neoplasm of unspecified site of left female breast (principal) | CPT/HCPCS: 99213 ==

== ENCOUNTER → 2022-05-18 10:29 | Outpatient (BNVA) | payer MEDICAID, SELFPAY | PROVIDERS: PCP Nurse Practitioner; Visit Provider Surgery | DX: C50.912 Malignant neoplasm of unspecified site of left female breast (principal) | CPT/HCPCS: 99212 ==

== ENCOUNTER → 2022-05-25 07:40 | Outpatient (BNVA) | payer MEDICAID, SELFPAY | PROVIDERS: PCP Nurse Practitioner; Visit Provider Surgery | DX: C50.912 Malignant neoplasm of unspecified site of left female breast (principal) | CPT/HCPCS: 99213 ==

== ENCOUNTER 2022-06-27 15:31 | Observation (INO) | payer MEDICAID, SELFPAY ==
[2022-06-24 17:07] VITALS: BMI 19.5
[2022-06-27] VITALS (23 sets, daily range): BP systolic 113–144; BP diastolic 81–103; PULSE 65–91; RESP 12–18; TEMP 36.1–36.7; O2SAT 92–100
--- NOTE | 2022-06-27 | NM_ITS ---
WS: [id number] SENTINEL NODE TECHNIQUE: Left sentinel node injection CLINICAL INFORMATION: LEFT BREAST CANCER COMPARISON: None. PROCEDURE: The procedure including risks, benefits, and complications were discussed; the patient agr eed to proceed. Patient was prepped and draped in usual sterile fashion. Timeout was performed. Subse quently, 0.87 mCi technetium 99m lymphoseek was injected into the subcutaneous soft tissues upper out er quadrant. Patient tolerated the procedure well with no immediate complications. FL/NM sentinel node inject [id number] IMPRESSION: Uncomplicated LEFT breast sentinel node injection with a total dose of 0.87 mCi .
--- NOTE | 2022-06-27 11:12 | ANES.PREANE2 ---
Pre-Anesthetic Assessment Height/Weight: Height 1.7 m Weight 56.699 kg O2 Del Method 06/27/22 10:41 Preop Diagnosis: Left breast cancer Operation Date: 06/27/22 12:15 Proposed Procedures p [id number] left total mastectomy wiht left axilla lymph node bx C50.912(Left) - Piter Dominguez MD s Sentinal Lymph Node Biopsy(Left) - Piter Dominguez MD Familial anesthetic complications: None Was Beta Mamta taken within 24 hours: Yes Was Clonidine taken within 24 hours: N/A Last intake: Intake Last Liquid Date 06/26/22 Last Liquid Time 22:30 Last Solid Date 06/26/22 Last Solid Time 18:00 Social Tobacco and No alcohol Exam alert, oriented x 3, clear to auscultation bilaterally and regular rate & rhythm Airway Mallampati: Class III Dentition: chipped, loose and other (poor dentition) Pulmonary Chronic Obstructive Pulmonary Disease CV/HEM Hypertension Chronic Renal Insufficiency Metabolic Hyperlipidemia Anesthetic Plan ASA status: 3 Anesthesia: General Risk of > 500 ml blood loss (7ml/kg in children): No Medications/Allergies Home Medications Medication Instructions Recorded Confirmed Last Taken Type meclizine 25 mg tablet 25 mg PO BID PRN nausea #30 tabs 12/10/21 06/24/22 Unknown Rx hydrocortisone 2.5 % topical cream 1 applic NE DAILY PRN hemorrhoids 02/24/22 06/27/22 06/06/22 Rx with perineal applicator #30 grams (Proctozone-HC) albuterol sulfate 90 mcg/actuation 2 puff inhalation Q6H PRN 05/02/22 06/27/22 06/27/22 Rx aerosol inhaler (ProAir HFA) shortness of breath or wheezing #8.5 grams clonazepam 0.5 mg tablet (Klonopin) 0.5 mg PO BID #60 tabs 05/02/22 06/27/22 06/26/22 Rx fenofibrate nanocrystallized 145 145 mg PO DAILY #30 tabs 05/02/22 06/27/22 06/26/22 Rx mg tablet (Tricor) lisinopril 20 mg tablet 20 mg PO DAILY #30 tabs 05/02/22 06/27/22 06/26/22 Rx propranolol 20 mg tablet 20 mg PO BID #60 tabs 05/02/22 06/27/22 06/27/22 08:00 Rx venlafaxine 150 mg 150 mg PO DAILY #30 caps 05/02/22 06/27/22 06/27/22 08:00 Rx capsule,extended release 24 hr (Effexor XR) amitriptyline 25 mg tablet 250 mg PO .at bedtime 06/24/22 06/27/22 06/26/22 History Allergies Allergy/AdvReac Type Severity Reaction Status Date / Time morphine Allergy Unknown vomit Verified 06/24/22 17:01 [facility] Anesthesia Medical History Anxiety COPD, mild DDD (degenerative disc disease), lumbosacral 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 Essential (primary) hypertension Hyperlipidemia, unspecified Insomnia Migraine Personal history of nicotine dependence Vitamin D deficiency Surgical History History of bilateral tubal ligation History of colonoscopy 2011 Port-A-Cath in place (03/18/22) Family History Mother CAD (coronary artery disease) Other Cancer Chronic kidney disease (CKD) Hyperlipidemia Hypertension Psychiatric illness Stroke Suicide Denies family history of Diabetes Clotting disorder Dementia Anesthesia complication Bleeding disorder Lung disease Social History Smoking and tobacco status: current every day smoker Second hand smoke exposure: Yes Smoking risk assessment/counseling performed?: Yes Alcohol intake: never Desire information about alcohol rehabilitation?: No Counseling given: No Desire information about substance/drug rehabilitation?: No Counseling given: No Adopted: No Caregiver/support person: No Lives independently: Yes Household members: other Marital status: Single Number of children: 1 service: No History of recent travel: No Current gender identity: Female Data Anesthesia Cardiac Studies: No Data to Display
[2022-06-27] MEDS: sodium chloride 0.9% 1,000 ML 30 ML IV (11:17)
[2022-06-27] MEDS: acetaminophen 1,000 MG/100 ML PIGGYBACK 400 MG IV (11:19)
[2022-06-27] MEDS: heparin 5,000 unit/mL INJ 1 mL 2000 UNIT SUBCUT (11:26)
--- NOTE | 2022-06-27 11:41 | P.HP_ITS ---
Same Day Surgery H&P Indication for Procedure/HPI DATE OF PROCEDURE: June 27, 2022 CHIEF COMPLAINT/INDICATIONFOR SURGICAL PROCEDURE: Left breast cancer PREOP DIAGNOSIS: Left breast cancer PLANNED PROCEDURE: Operation Date: 06/27/22 12:15 Proposed Procedures p [id number] left total mastectomy wiht left axilla lymph node bx C50.912(Left) - Piter Dominguez MD s Sentinal Lymph Node Biopsy(Left) - Piter Dominguez MD 05/12/2022 This is a pleasant 52 years old female patient with diagnosis of left breast cancer back in February 2021 that showed poorly differentiated invasive ductal carcinoma with ER positive MS positive and HER2 positive, at some point chemotherapy was recommended and it seems that the patient did not pursue it and she did have at some point a PowerPort placement by my partner Dr. Aubrey aguilar in June 2021.? Patient undergone a PET CT scan and it took place in September 2021 that showed; A?1.4 x 2.2 cm mass in her upper outer quadrant of left breast no left axillary lymphadenopathy, there are 2 lytic osseous lesion at T8 and L1 consistent with osseous metastatic disease.? Patient denies any mid back pain but chronic lower back pain.? No lower extremity numbness, no urine or stool incontinence, no jaundice, no headaches no blurred vision double vision, no nipple discharge, no overlying skin changes A repeat PET CT scan was done; on April 09, 2022 shows there has been marginal improvement in left breast mass, now with SUV of 3.8 compared to 4.4 previously.? Left axillary lymph nodes are unchanged from prior study and remained FDG negative.? Reactive bilateral jugulodigastric nodes uptake seen previously has normalized on the study.? Osseous metastatic disease at T8 is unchanged with SUV of 4.6 and L1 lesion is improved with SUV of 3.7 compared to 5.5 previously no new lesion. Patient continues to show no interest in chemotherapy.? And she was referred to my practice today for mastectomy with a sentinel lymph node biopsy of the left axilla. Previous breast biopsies not applicable Personal or family history of breast cancer not applicable Age of menarche 15 History of menstrual cycles irregular cycle History of control pills for few years Obstetric history? A0 ectopic Breast-feeding history not applicable 05/18/2022 Patient comes today for follow-up as she did have questions and concerns about her elective left total mastectomy with sentinel lymph node biopsy.? Regarding immediate reconstruction and other questions that she prefers to have it asked in person.? Also patient was concerned to be discharged the same day versus keeping her overnight. 05/25/2022 Patient comes today for follow-up as she did have some inquiries regarding her surgery which is scheduled for June 13.? She was interested to remove her port and I did advise to hold off till we have the final pathology back and then she can revisit about potential chemotherapy with medical oncology instead of burning bridges and remove the port now and may change her mind that she would pursue treatment thereafter.? Also the patient requested a print out regarding her surgery date which my staff will be accommodating that. Patient had mentioned that she has court appointment on the and she wanted to make sure that this will not affect or interfere with her surgery and it sounded it should not. 06/27/2022 Patient is coming today for a total left mastectomy and sentinel lymph node biopsy of the left axillary lymph nodes ROS All systems have been reviewed negative except as for the above or per problem list. Medications/Allergies* Home Medications Medication Instructions Recorded Confirmed Type amitriptyline 25 mg tablet 250 mg PO .at bedtime 06/24/22 06/27/22 History Allergies/Adverse Reactions Allergy/AdvReac Type Severity Reaction Status Date / Time morphine Allergy Unknown vomit Verified 06/27/22 11:42 Current Medications: Generic Name Dose Route Start Last Admin Trade Name Freq PRN Reason Stop Dose Admin Sodium Chloride 1,000 mls @ 30 mls/hr 06/27/22 10:45 06/27/22 11:17 Sodium Chloride 0.9% IV 06/28/22 10:44 30 mls/hr .Q24H GERMAN Administration Pertinent History/Comorbid Conditions* Medical History (Updated 02/27/22 @ 12:47 by MENA Nieto) Anxiety COPD, mild DDD (degenerative disc disease), lumbosacral 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 Essential (primary) hypertension Hyperlipidemia, unspecified Insomnia Migraine Personal history of nicotine dependence Vitamin D deficiency Surgical History (Updated 03/18/22 @ 09:52 by Bobo Burgos MD) History of bilateral tubal ligation History of colonoscopy 2011 Port-A-Cath in place (03/18/22) Family History (Updated 06/30/22 @ 14:37 by Joy Amos LPN) CAD (coronary artery disease) Mother Hyperlipidemia Psychiatric illness Chronic kidney disease (CKD) Suicide Cancer Hypertension Stroke Denies family history of Diabetes Clotting disorder Dementia Anesthesia complication Bleeding disorder Lung disease Social History Smoking and tobacco status: current every day smoker Second hand smoke exposure: Yes Smoking risk assessment/counseling performed?: Yes Alcohol intake: never Desire information about alcohol rehabilitation?: No Counseling given: No Desire information about substance/drug rehabilitation?: No Counseling given: No Adopted: No Caregiver/support person: No Lives independently: Yes Household members: other Marital status: Single Number of children: 1 service: No History of recent travel: No Current gender identity: Female Pertinent Exam Findings oriented x 3, operative site marked (Left breast exam was done in the presence of female nursing staff Silvia) and procedure specific exam findings (Abdominal exam nontender nondistended soft) Recommendations Surgery/Procedure today (Left total mastectomy with sentinel for biopsy of the left axilla) Coding Level of Care Code 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
[2022-06-27 12:07] LABS: Blood Urea Nitrogen 26 mg/dL (6-20); Calcium 8.9 mg/dL (8.5-10.5); Carbon Dioxide 23 mmol/L (22-29); Chloride 103 mmol/L (98-107); Glomerular Filtration Rate 29.4 mL/min (90-130); Glucose 69 mg/dL (65-115); Osmolality Calculated 283 mOsm/kg (285-295); Sodium 135 mmol/L (136-145)
[2022-06-27] MEDS: ceFAZolin 2,000 MG in sodium chloride 0.9% (plus) 50 ML 100 MG IV (12:08)
[2022-06-27 12:11] LABS: Anion Gap 14.8 (5-19); Potassium 5.8 mmol/L (3.5-5.1)
--- NOTE | 2022-06-27 12:12 | NM_ITS ---
WS: [id number] SENTINEL NODE TECHNIQUE: Left sentinel node injection CLINICAL INFORMATION: LEFT BREAST CANCER COMPARISON: None. PROCEDURE: The procedure including risks, benefits, and complications were discussed; the patient agr eed to proceed. Patient was prepped and draped in usual sterile fashion. Timeout was performed. Subse quently, 0.87 mCi technetium 99m lymphoseek was injected into the subcutaneous soft tissues upper out er quadrant. Patient tolerated the procedure well with no immediate complications.
[2022-06-27] MEDS: isosulfan blue 10 mg/mL SDV 5mL SUBCUT (12:44)
[2022-06-27] MEDS: lidocaine 1% INJ 20 mL INJECTION (12:54)
--- NOTE | 2022-06-27 14:12 | PM.OP ---
Operative Report Date of procedure: June 27, 2022 Pre-op diagnosis: Preop Diagnosis Left breast cancer Procedure done: Left total mastectomy and left axilla sentinel lymph node biopsy Implants: Olegario-Pressley drains x2 Specimens removed/disposition: Left total mastectomy short sutures marked superior and long sutures marked [place] lymph node #1 in vivo 130 and ex vivo 7 Surgeon: Piter Dominguez MD Web Content Director: Surgical manuel Alfaro and Ita Circulating nurse had Anesthesia: General (COMMUNICATIONS CONSULTANT Glenn Hayden) Estimated blood loss (mL): 50 Procedure: In the nuclear medicine suite, the patient undergone injection of the appropriate nuclear active material. Few hours later, the patient was taken to the operating room Patient was identified in holding area and the left breast was marked by me in the presence of female nursing staff Silvia,Patient was brought then to the operating room and the site of surgery was confirmed. Immediate time-out was done verifying the patient's name/date of /planned procedure and destination after the procedure, all were in agreement. SCDs confirmed to be functioning, preoperative antibiotics administered per protocol, and beta julian protocol was confirmed, appropriate positioning of the patient was done by me and the nursing staff. Both breasts chest wall axilla and the whole left upper extremity and neck were prepped and draped in the usual sterile fashion, the right upper extremity were placed in a stockinette to allow mobilization of the arm during axillary dissection. Hand-held gamma probe was used to identify the location of the hottest spot in the axilla. Noticed that the patient had an enlarged left breast mass. Lymphazurin blue dye was injected at the subareolar region and around the mass, this was massaged gently for 5 minutes, again hand-held probe was used to identify the location of the hottest spot in the axilla. Prior to the incision, incision was made over the coinciding with the superior flap of the mastectomy incision, after appropriate dissection, the probe was placed in contact with the node/stained blue, each lymph node was excised in its entirety. Miguel counts as follows [place] lymph node #1 in vivo 130,ex vivo 7 that was passed to the circulating nurse The remaining skin incision was made that encompassed the nipple area complex and the previous biopsy scar passed in a generally transverse/oblique direction across the breast Flaps were raised in the avascular plane between the subcutaneous tissue and breast tissue from the clavicle superiorly, the sternum medially, the anterior rectus sheath inferiorly, and anterior border of the latissimus dorsi muscle laterally. Hemostasis was achieved of the flaps. Next the breast tissue underlying pectoralis fascia were excised from the pectoralis major muscle, progressing from medially to laterally in the avascular plane. At the lateral border of the pectoralis major muscle, the breast tissue was swung laterally,. The medial pectoral neurovascular bundle was identified and preserved. The thoracodorsal bundle was identified and safeguarded, the long thoracic nerve then identified along the edge of the serratus anterior on the chest wall and preserved, nerve to latissimus dorsi was preserved. Nerves were tested and muscles were twitching The specimen consisting of breast and attached pema tissue then excised by dividing the remaining lateral pedicle and sent for permanent pathology. Specimen was marked as short superior, and long sutures lateral The wound was bipin irrigated and hemostasis was achieved. Following that 2 ABDULKADIR drains 10 Greek were placed and brought out through the inferior flap, 1 towards the axilla marked #2 and the other towards the left pectoral region worked #1, drains were stitched to the skin using 2-0 nylon. Wound was then closed using deep subdermal 2-0 Vicryl , followed by skin kati, dry dressing, drain dressings, Telfa, fluffs on top and sports bra was applied. Counts of needles, sponges and instruments were completed at the end of the procedure I was present for the whole entire procedure Patient was then extubated and taken to the recovery room in stable condition
--- NOTE | 2022-06-27 15:00 | SUR.PHASEI ---
1431 PT TO PACU 5 PT SLEEPY WITH GOOD RESP EFFORT PER 8L MASK, HOB AT 30 DEGREES, LT BREAST DRESSING D/I SUPPORT BRA IN PLACE WITH ABDULKADIR X 2 COMPRESSED WITH GOOD SUCTION MAINTAINED. IV TO RT WRIST #20 WITH NS 150 ML UP AT KVO. BILAT SCD ON AND WORKING. MONITOR SR IWTH NO ECTOPY NOTED.
--- NOTE | 2022-06-27 15:08 | SUR.PHASEI ---
1300 PT AWAKES TO TOUCH, NOW, PT ON RA TRIAL,SATS MAINTAINED AT 94 % PT REMAINS VERY GROGGY AND QUICKLY BACK TO SLEEP , PT ORIENTED TO NAME ONLY. PT ENCOURAGED TO COUGH AND DEEP BREATH, PT DOES NOT FOLLOW COMMANDS AT THIS TIME.
--- NOTE | 2022-06-27 15:19 | SUR.PHASEI ---
PT WAKES UP TO TOUCH, TAKING SMALL ICE CHIPS PT KNOWS NAME VERBALIZED NO PAIN PT DENIES COLD. WARM BLANKET TO PT ON ARRIVAL. DRESSING D/I STILL UNCHANGED.
--- NOTE | 2022-06-27 15:51 | SUR.PHASEI ---
PT FAMILY UPDATED AND IN TO SEE PT BEFORE LEAVING, PT AWAKES AND TALKS TO HER FRIEND, KNOWS SHE IS STAYING THEN QUICKLY BACK TO SLEEP VERBAL REPORT CALLED TO FLOOR. DRESSING D/I
--- NOTE | 2022-06-27 15:55 | ANE.PACU2 ---
Inpatient post-anesthesia follow up: Airway intact: Yes Vital signs: Temperature 97.6 F Pulse Rate 70 Respiratory Rate 17 Blood Pressure 131/91 Pulse Oximetry 97 Oxygen Delivery Me thod Nasal Cannula Oxygen Flow Rate 3 Fraction of Inspir ed Oxygen Hydration adequate: Yes Nausea and vomiting: No Pain level: 2 Mental status: Baseline
[2022-06-27] MEDS: sodium chloride 0.9% 1,000 ML 50 ML IV (16:21)
[2022-06-27] MEDS: HYDROcodone-acetaminophen 5-325 mg Tablet 1 TAB PO ×2 (16:23→23:27)
[2022-06-27] MEDS: famotidine 20 mg/2 mL INJ IVP (16:23)
[2022-06-27] MEDS: acetaminophen 325 mg Tablet 650 MG PO (16:24)
[2022-06-27] MEDS: CLONazepam 0.5 mg Tablet PO (21:15)
[2022-06-28] MEDS: famotidine 20 mg/2 mL INJ IVP (04:10)
[2022-06-28 04:16] VITALS: BP 128/84; PULSE 90; RESP 16; O2SAT 95
[2022-06-28 04:16] LABS: Hematocrit 33.1 % (37.0-47.0)
--- NOTE | 2022-06-28 06:13 | PM.SDS ---
Short Stay Summary Providers Date of Admit/Discharge: 06/28/22 Attending Provider: Piter Dominguez MD Primary Care Provider: MENA Nieto Chief Complaint: C50.912 HPI History of Present Illness Guera Mills is a 52 year old female Review of Systems General: Reports: 10 or more systems reviewed and unremarkable except in HPI and below Home Meds/Allergies Home Medications and Allergies Home Medications Medication Instructions Recorded Confirmed Type amitriptyline 25 mg tablet 250 mg PO .at bedtime 06/24/22 06/27/22 History Allergies Allergy/AdvReac Type Severity Reaction Status Date / Time morphine Allergy Unknown vomit Verified 06/28/22 06:13 PFSH Acute PFSH: Medical History Anxiety COPD, mild DDD (degenerative disc disease), lumbosacral 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 Essential (primary) hypertension Hyperlipidemia, unspecified Insomnia Migraine Personal history of nicotine dependence Vitamin D deficiency Surgical History History of bilateral tubal ligation History of colonoscopy 2011 Port-A-Cath in place (03/18/22) Family History Mother CAD (coronary artery disease) Other Cancer Chronic kidney disease (CKD) Hyperlipidemia Hypertension Psychiatric illness Stroke Suicide Denies family history of Diabetes Clotting disorder Dementia Anesthesia complication Bleeding disorder Lung disease Social History Smoking and tobacco status: current every day smoker Second hand smoke exposure: Yes Smoking risk assessment/counseling performed?: Yes Alcohol intake: never Desire information about alcohol rehabilitation?: No Counseling given: No Desire information about substance/drug rehabilitation?: No Counseling given: No Adopted: No Caregiver/support person: No Lives independently: Yes Household members: other Marital status: Single Number of children: 1 service: No History of recent travel: No Current gender identity: Female Vitals/I&O/Wt Last Vital Signs Temp 98.1 F 06/27/22 23:29 Pulse 90 06/28/22 04:16 Resp 16 06/28/22 04:16 BP 128/84 06/28/22 04:16 Pulse Ox 95 06/28/22 04:16 O2 Del Method 06/28/22 04:16 O2 Flow Rate 2 06/27/22 18:25 06/27/22 06/27/22 06/28/22 14:59 22:59 06:59 Intake Total 150 / 150 Output Total 50 / 50 90 / 140 Balance 100 / 100 -90 / 10 Physical Exam Narrative: Patient is conscious alert oriented X3 No apparent distress BMI 19.6 Head and neck examination PERRLA no masses no cervical lymphadenopathy no jaundice Chest is clear bilateral,abscence of Rhonchi or wheezes,no surgical emphysema Left pectoral area shows a viable flaps. Minor dusky changes of the superior flap yet stable, drains in place with thibodeaux colored output. Physical exam was done in the presence of female solar photovoltaic designer nursing staff. Abdomen nontender nondistended soft no organomegaly guarding or rigidity/no signs of peritonitis Extremities no cyanosis no clubbing no edema Hospital Course Hospital Course I elected to keep the patient in an observation status overnight in the hospital, for appropriate pain control. Continue to have stable vital signs adequate urine output and pain under control. Tolerated p.o. intake. Repeat labs in the morning showed slight drift in H&H and there was a hemolyzed sample so the potassium level was repeated and was within normal limits. Patient maintained appropriate course post mastectomy and sentinel lymph node biopsy. Met the appropriate and safe criteria to be discharged home with specific instructions and education regarding wound care as well as drain care. Discharge Summary Patient was discharged home with education regarding wound and drain care. With the plan to follow-up with me in the office in 10 days. SSS Data Data Completed and Pending: Pending at discharge Category Date Time Status Hemoglobin and He matocrit AM LABS Lab 06/29/22 04:00 Ordered Hemoglobin and He matocrit AM LABS Lab 06/30/22 04:00 Ordered Potassium Stat Lab 06/28/22 05:55 Ordered NM lymphatics/lym ph node [id number] Rout ine Nuc Med 06/27/22 12:12 Taken Pathology: Surgic al [PTH] Routine Pth 06/27/22 13:53 Received Procedures Performed: Procedure done: Left total mastectomy and left axilla sentinel lymph node biopsy Implants: Olegario-Pressley drains x2 Specimens removed/disposition: Left total mastectomy short sutures marked superior and long sutures marked [place] lymph node #1 in vivo 130 and ex vivo 7 Surgeon: Piter Dominguez MD Shelf Stocker: Surgical manuel Alfaro and Ita Circulating nurse had Anesthesia: General (BUILDING RENTAL MANAGER Glenn Hayden) Estimated blood loss (mL): 50 Procedure: In the nuclear medicine suite, the patient undergone injection of the appropriate nuclear active material. Few hours later, the patient was taken to the operating room Patient was identified in holding area and the left breast was marked by me in the presence of female nursing staff Silvia,Patient was brought then to the operating room and the site of surgery was confirmed.? Immediate time-out was done verifying the patient's name/date of /planned procedure and destination after the procedure, all were in agreement. SCDs confirmed to be functioning, preoperative antibiotics administered per protocol, and beta julian protocol was confirmed, appropriate positioning of the patient was done by me and the nursing staff. Both breasts chest wall axilla and the whole left upper extremity and neck were prepped and draped in the usual sterile fashion, the right upper extremity were placed in a stockinette to allow mobilization of the arm during axillary dissection. Hand-held gamma probe was used to identify the location of the hottest spot in the axilla.? Noticed that the patient had an enlarged left breast mass. Lymphazurin blue dye was injected at the subareolar region and around the mass, this was massaged gently for 5 minutes, again hand-held probe was used to identify the location of the hottest spot in the axilla.? Prior to the incision, incision was made over the coinciding with the superior flap of the mastectomy incision, after appropriate dissection, the probe was placed in contact with the node/stained blue, each lymph node was excised in its entirety. ?Miguel counts as follows [place] lymph node #1 in vivo 130,ex vivo 7 that was passed to the circulating nurse. There was no other activity is detected. The remaining skin incision was made that encompassed the nipple area complex and the previous biopsy scar passed in a generally transverse/oblique direction across the breast? Flaps were raised in the avascular plane between the subcutaneous tissue and breast tissue from the clavicle superiorly, the sternum medially, the anterior rectus sheath inferiorly, and anterior border of the latissimus dorsi muscle laterally. Hemostasis was achieved of the flaps. Next the breast tissue underlying pectoralis fascia were excised from the pectoralis major muscle, progressing from medially to laterally in the avascular plane.? At the lateral border of the pectoralis major muscle, the breast tissue was swung laterally,. ?The medial pectoral neurovascular bundle was identified and preserved.? The thoracodorsal bundle was identified and safeguarded, the long thoracic nerve then identified along the edge of the serratus anterior on the chest wall and preserved, nerve to latissimus dorsi was preserved. Nerves were tested and muscles were twitching ?The specimen consisting of breast and attached pema tissue then excised by dividing the remaining lateral pedicle and sent for permanent pathology. Specimen was marked as short superior, and long sutures lateral The wound was bipin irrigated and hemostasis was achieved. Following that 2 ABDULKADIR drains 10 Green[place]ic were placed and brought out through the inferior flap, 1 towards the axilla marked #2 and the other towards the left pectoral region worked #1, drains were stitched to the skin using 2-0 nylon.? Wound was then closed using deep subdermal 2-0 Vicryl , followed by skin kati, dry dressing, drain dressings, Telfa, fluffs on top and sports bra was applied. Counts of needles, sponges and instruments were completed at the end of the procedure I was present for the whole entire procedure Patient was then extubated and taken to the recovery room in stable condition Dictated By: Piter Dominguez MD Signed By: Piter Dominguez MD Signed Date/Time: 06/28/22 5112 Discharge Plan Discharge Patient Disposition: Home Condition: Stable Prescriptions: New hydrocodone-acetaminophen 5-325 mg tablet 1 tab PO Q6H PRN (Reason: pain) Qty: 28 0RF Continued hydrocortisone [Proctozone-HC] 2.5 % cream with perineal applicator 1 applic OR DAILY PRN (Reason: hemorrhoids) Qty: 30 2RF albuterol sulfate [ProAir HFA] 90 mcg/actuation HFA aerosol inhaler 2 puff INHALATION Q6H PRN (Reason: shortness of breath or wheezing) Qty: 8.5 2RF clonazepam [Klonopin] 0.5 mg tablet 0.5 mg PO BID Qty: 60 2RF fenofibrate nanocrystallized [Tricor] 145 mg tablet 145 mg PO DAILY Qty: 30 2RF lisinopril 20 mg tablet 20 mg PO DAILY Qty: 30 2RF propranolol 20 mg tablet 20 mg PO BID Qty: 60 2RF venlafaxine [Effexor XR] 150 mg capsule,extended release 24hr 150 mg PO DAILY Qty: 30 2RF meclizine 25 mg tablet 25 mg PO BID PRN (Reason: nausea) Qty: 30 0RF amitriptyline 25 mg tablet 250 mg PO .at bedtime Rx Instructions: 25mg-50mg PO .at bedtime; Discharge Orders: Discharge Order (Routine); Ordered 06/28/22 Ordered By: Piter Dominguez Referrals: Piter Dominguez MD [Physician] - 07/04/22 1:00 pm () Discharge Diet: Advance as tolerated Discharge Activity: Limit activity as instructed Patient Instructions: Hydrocodone/Acetaminophen (By mouth), How to Stop Smoking (DC), Olegario-Pressley Drain Care (DC), Mastectomy (DC), Breast Cancer [place] Lymph Node Biopsy (DC), Opioid Safety, Post Anesthesia Care Activity Restrictions/Additional Instructions: 1. Patient can shower after 48 hours from surgery 2. Remove secondary dressing can take down after 48 hours. Sports bra for comfort 3. Up and walking as tolerated 4. Do not lift more than 5 pounds first 2 weeks after surgery and not more than 25 pounds 6 to 8 weeks after surgery. 5. Do not operate heavy machinery or drive while using pain medications. 6.Contact the office or return to the ER for worsening nausea vomiting fevers or chills, or noticing any redness around incision sites or discharge. Attestations Medical Necessity Statement*: Observation status Time Spent in Patient Care*: greater than 30 min Time Spent in Smoking Cessation: Time spent discussing smoking cessation with patient: more than 10 minutes Specific Discharge Activities: Specific discharge activities: educating patient and educating and/or supporting family/caregiver Status at Discharge: Cognitive status at discharge: cognitively intact, Behavioral status at discharge: cooperative, Functional status at discharge: independent ambulation Overall status at discharge: patient is progressing back to baseline Quality Metrics Clinical Quality Measures: [ No reported AMI, CVA or VTE this stay] Coding Level of Care Code Acute Route Returner for Alf Dave
[2022-06-28 06:44] LABS: Potassium 4.8 mmol/L (3.5-5.1)
[2022-06-28] MEDS: HYDROcodone-acetaminophen 5-325 mg Tablet 1 TAB PO (08:36)
[2022-06-28 08:45] VITALS: BP 165/95; PULSE 68; RESP 16; TEMP 36.7; O2SAT 98
[2022-06-30 09:41] LABS: Breast Profile ER,PR,HER2,Ki-6 See Report
== END 2022-06-28 08:45 | disposition home or self-care (01) ==
LOC: OBGYN 15:31
PROVIDERS: Anesthesiology; Admitting Provider Surgery; PCP Nurse Practitioner; Visit Provider Surgery
PROC: (CPT 19303; principal; 2022-06-27 12:05)
PROC: (CPT 19303; 2022-06-27 12:05)
DX: C50.912 Malignant neoplasm of unspecified site of left female breast (principal); F17.210 Nicotine dependence, cigarettes, uncomplicated; J44.9 Chronic obstructive pulmonary disease, unspecified; I10 Essential (primary) hypertension; E78.5 Hyperlipidemia, unspecified; F41.9 Anxiety disorder, unspecified
CPT/HCPCS: 19303; 38500; 36415; 38792; 78195; 80048; 84132; 85014; 85018; 88307; 88309; 88361; 88374; A9541; G0378; J0131; J0330; J0690; J1100; J1170; J1644; J2405; J2704; J3010; J3490; J7030; Q9968

== ENCOUNTER → 2022-07-11 14:58 | Outpatient (BNVA) | payer MEDICAID, SELFPAY | PROVIDERS: PCP Nurse Practitioner; Visit Provider Surgery | DX: Z09 Encounter for follow-up examination after completed treatment for conditions other than malignant neoplasm (principal); T81.30XA Disruption of wound, unspecified, initial encounter; X58.XXXA Exposure to other specified factors, initial encounter | CPT/HCPCS: 99024 ==

== ENCOUNTER 2022-07-11 20:25 | Observation (INO) | payer MEDICAID, SELFPAY ==
[2022-07-11 20:40] VITALS: BP 113/76; PULSE 122; RESP 16; TEMP 36.9; O2SAT 95
[2022-07-11] MEDS: piperacillin-tazobactam 3.375 GM in sodium chloride 0.9% (plus) 50 ML IV (21:40)
[2022-07-11] MEDS: sodium chloride 0.9% 1,000 ML 75 ML IV (21:40)
[2022-07-11 21:52] VITALS: BMI 19.8
[2022-07-11] MEDS: zolpidem 5 mg Tablet PO (21:59)
[2022-07-12] VITALS (16 sets, daily range): BP systolic 92–123; BP diastolic 52–81; PULSE 70–94; RESP 14–20; TEMP 36.1–36.9; O2SAT 91–99
[2022-07-12] MEDS: piperacillin-tazobactam 3.375 GM in sodium chloride 0.9% (plus) 50 ML IV (03:58)
[2022-07-12 05:36] LABS: Basophils # 0.1 10^3/uL (0.0-0.1); Basophils % 0.9 %; Eosinophils # 0.5 10^3/uL (0.0-0.8); Eosinophils % 5.7 %; Hematocrit 33.7 % (37.0-47.0); Lymphocytes # 2.5 10^3/uL (0.8-4.8); Lymphocytes % 29.2 %; Mean Corpuscular HGB Conc 29.7 g/dL (30.0-36.0); Mean Corpuscular Hemoglobin 27.3 pg (28.0-34.0); Mean Corpuscular Volume 92.1 fl (81-99); Mean Platelet Volume 8.6 fL (7.4-10.4); Monocytes % 11.6 %; Nucleated Red Blood Cells % 0 %; Platelet Count 582 10^3/cmm (130-400); Red Blood Count 3.66 10^6/uL (4.1-5.3); Red Cell Distribution Width 14.4 % (12.1-15.1); White Blood Count 8.5 10^3/uL (4.0-10.0)
[2022-07-12 06:07] LABS: Anion Gap 14.5 (5-19); Blood Urea Nitrogen 37 mg/dL (6-20); Calcium 9.2 mg/dL (8.5-10.5); Carbon Dioxide 25 mmol/L (22-29); Chloride 105 mmol/L (98-107); Glomerular Filtration Rate 19.3 mL/min (90-130); Glucose 98 mg/dL (65-115); Osmolality Calculated 299 mOsm/kg (285-295); Potassium 4.5 mmol/L (3.5-5.1); Sodium 140 mmol/L (136-145)
[2022-07-12] MEDS: sodium chloride 0.9% 1,000 ML 75 ML IV (11:07)
--- NOTE | 2022-07-12 11:47 | PC.NURSE ---
patient refused vital signs
[2022-07-12] MEDS: LORazepam 2 mg/mL INJ 1 mL 0.5 MG IM (11:52)
--- NOTE | 2022-07-12 12:08 | PC.NURSE ---
Upon entering patients room, patient had pulled tubing out of bag of fluid and antibiotic bag that was hanging and threw the fluid bag over in the basket on the wall. Patient wanted to go outside for air. This nurse stated patients could not leave the floor or go outside without a doctors order. Patient started talking loudly there was no paper she signed to keep her locked down in the room, she was going. This nurse stated she could not return to this floor or room if she left the floor. This nurse told patient the doctor is being called to see if he approved. While on the phone, patient was walking by nurses station holding arm with a paper towel due to patient pulling IV out and throwing on the floor. Dr. Crouch stated to explain to patient the risk of leaving AMA with a wound open as hers and how important it was to have the wound taken care of. This nurse with charge nurse spoke to patient explaining the physicians concerns. The patient returned to room. Charge nurse contacted the physician for some ativan to calm patient down. Patient then decided to take a shower. Charge nurse covered wound with some waterproof tape and allowed the shower. This nurse was going to repack wound and patient has refused at this time.
--- NOTE | 2022-07-12 12:57 | XR_ITS ---
WS: [id number] XR sacrum coccyx min 2V [id number] REASON FOR EXAM: Fall FINDINGS: Normal sacroiliac joints. The sacrum and coccyx are intact without evidence of fracture or dislocation. XR/XR sacrum coccyx min 2V [id number] IMPRESSION: No acute abnormality.
--- NOTE | 2022-07-12 12:57 | XR_ITS ---
WS: [id number] XR lumbar spine 2-3V* [id number] REASON FOR EXAM: Fall FINDINGS: Mild rotatory scoliosis convex to the right. Exaggerated lordosis of the lumbar spine. There are mild superior endplate compression deformities of L2 through L4. Compared to a previous exa mination of 09/02/2014 these appear to be chronic abnormalities. Mild narrowing of the lumbar intervertebral disc spaces from L1 to S1. There are mild anterolistheses of L2 in relation to L1, L2 in relation to L3, L4 in relation to L2, L 5 in relation to L4. Mild to moderate degenerative changes in the facet joints L3-S1. XR/XR lumbar spine 2-3V* [id number] IMPRESSION: No definite acute lumbar spine abnormality. Mild to moderate progression of lum bar degenerative disc disease compared to 09/02/2014.
--- NOTE | 2022-07-12 13:14 | P.PN_ITS ---
Subjective Subjective: Patient got admitted yesterday as a direct admission under my service for observation status.Due to postmastectomy wound dehiscence and potential underlying infection.According to the nursing staff patient wanted to leave AGAINST MEDICAL ADVICE today.And in the interim she fell and hit her back per her description and started hurting more and she does have underlying chronic back problem. Patient was seen and evaluated by me bedside in the presence of nursing staff Cyndi and Renuka.There is no evidence of neurological deficits.X-rays were requested on the lumbosacral area. In the interim patient is awaiting for surgical intervention for debridement of left pectoral wound.Apparently the patient had fell in the presence of her moss picker. Medications: Reviewed: Yes Vitals/I&O/Wt Last Vital Signs Temp 98.4 F 07/12/22 08:00 Pulse 79 07/12/22 08:00 Resp 16 07/12/22 08:00 BP 111/69 07/12/22 08:00 Pulse Ox 95 07/12/22 08:00 O2 Del Method 07/12/22 08:00 07/11/22 07/12/22 07/12/22 22:59 06:59 14:59 Intake Total 50 / 50 1050 / 1050 Output Total 0 / 0 0 / 0 Balance 0 / 0 50 / 50 1050 / 1050 Weight last 48 hrs Weight 127 lb Physical Exam Narrative: Patient is conscious alert oriented X3 No apparent distress BMI 19.6 Head and neck examination PERRLA no masses no cervical lymphadenopathy no jaundice Dressing in place Abdomen nontender nondistended soft no organomegaly guarding or rigidity/no signs of peritonitis Tenderness over the lumbar area. No evidence of neurological deficits Extremities no cyanosis no clubbing no edema Data 07/12/22 05:19 07/12/22 05:19 A&P Assessment and plan (1) Personal history of nicotine dependence: Nicotine lozenges (2) Wound dehiscence: Plan to take patient for surgery today for debridement of left pectoral area wound (3) Back pain: Lumbosacral x-rays Mild rotatory scoliosis convex to the right. Exaggerated lordosis of the lumbar spine. There are mild superior endplate compression deformities of L2 through L4. Compared to a previous examination of 09/02/2014 these appear to be chronic abnormalities. Mild narrowing of the lumbar intervertebral disc spaces from L1 to S1. There are mild anterolistheses of L2 in relation to L1, L2 in relation to L3, L4 in relation to L2, L5 in relation to L4. Mild to moderate degenerative changes in the facet joints L3-S1. XR/XR lumbar spine 2-3V* [id number] IMPRESSION: No definite acute lumbar spine abnormality. Mild to moderate progression of lumbar degenerative disc disease compared to 09/02/2014. ? Fall risk precautions Education to the patient and her friend Assurance and education All questions have been answered and all concerns have been addressed to patient 's satisfaction. Attestations Medical Necessity Statement*: Observation status Coding Level of Care Code Acute Cyber Security Instructor for Chg Fwd Diagnoses Personal history of nicotine dependence Z87.891 Wound dehiscence T81.30XA Back pain M54.9
--- NOTE | 2022-07-12 14:11 | ANES.PREANE2 ---
Pre-Anesthetic Assessment Height/Weight: Height 1.7 m Weight 57.606 kg Temp Pulse Resp BP Pulse Ox O2 Del Method 97.3 F L 94 18 92/66 96 07/12/22 14:04 07/12/22 14:04 07/12/22 14:04 07/12/22 14:04 07/12/22 14:04 07/12/22 14:04 Preop Diagnosis: Left breast cancer Operation Date: 07/12/22 15:40 Proposed Procedures p Incision And Drainage post masectomy(Bilateral) - Piter Dominguez MD Familial anesthetic complications: none Was Beta Mamta taken within 24 hours: N/A Was Clonidine taken within 24 hours: N/A Last intake: Intake Last Liquid Date 07/11/22 Last Liquid Time 23:00 Last Solid Date 07/11/22 Last Solid Time 20:00 Social Tobacco and No alcohol Exam alert, oriented x 3, clear to auscultation bilaterally and regular rate & rhythm Airway Mallampati: Class II Dentition: chipped and other (mulitple missing) Pulmonary Chronic Obstructive Pulmonary Disease CV/HEM Hypertension Chronic Renal Insufficiency Metabolic Hyperlipidemia Anesthetic Plan ASA status: 3 Anesthesia: General Risk of > 500 ml blood loss (7ml/kg in children): No Medications/Allergies Home Medications Medication Instructions Recorded Confirmed Last Taken Type meclizine 25 mg tablet 25 mg PO BID PRN nausea #30 tabs 12/10/21 07/12/22 Unknown Rx hydrocortisone 2.5 % topical cream 1 applic [place] DAILY PRN hemorrhoids 02/24/22 07/12/22 06/06/22 Rx with perineal applicator #30 grams (Proctozone-HC) albuterol sulfate 90 mcg/actuation 2 puff inhalation Q6H PRN 05/02/22 07/12/22 06/27/22 Rx aerosol inhaler (ProAir HFA) shortness of breath or wheezing #8.5 grams clonazepam 0.5 mg tablet (Klonopin) 0.5 mg PO BID #60 tabs 05/02/22 07/12/22 06/26/22 Rx fenofibrate nanocrystallized 145 145 mg PO DAILY #30 tabs 05/02/22 07/12/22 06/26/22 Rx mg tablet (Tricor) lisinopril 20 mg tablet 20 mg PO DAILY #30 tabs 05/02/22 07/12/22 06/26/22 Rx propranolol 20 mg tablet 20 mg PO BID #60 tabs 05/02/22 07/12/22 06/27/22 08:00 Rx amitriptyline 25 mg tablet 25 - 50 mg PO BEDTIME 06/24/22 07/12/22 06/26/22 History hydrocodone 5 mg-acetaminophen 325 1 tab PO Q6H PRN pain #28 tabs 06/28/22 07/12/22 Unknown Rx mg tablet sulfamethoxazole 800 1 tab PO BID 10 days #20 tabs 07/11/22 07/12/22 Unknown Rx mg-trimethoprim 160 mg tablet (Bactrim DS) ergocalciferol (vitamin D2) 1,250 50,000 unit PO Q7D 07/12/22 07/12/22 Unknown History mcg (50,000 unit) capsule ibuprofen 200 mg tablet 2,000 mg PO Q6H PRN Pain 07/12/22 07/12/22 Unknown History venlafaxine 150 mg 150 mg PO QAM 07/12/22 07/12/22 Unknown History capsule,extended release 24 hr (Effexor XR) Allergies Allergy/AdvReac Type Severity Reaction Status Date / Time morphine Allergy Unknown vomit Verified 07/12/22 13:04 Current Medications Generic Name Dose Route Start Last Admin Trade Name Freq PRN Reason Stop Dose Admin Piperacillin Sod/Tazobactam 50 mls @ 12.5 mls/hr 07/11/22 20:45 07/12/22 11:52 Sod 3.375 gm/ Sodium Chloride IV Infused Q8H GERMAN Infusion Protocol Sodium Chloride 1,000 mls @ 75 mls/hr 07/11/22 21:00 07/12/22 11:07 Sodium Chloride 0.9% IV 75 mls/hr .[id number] GERMAN Administration PFSH Anesthesia Medical History Anxiety COPD, mild DDD (degenerative disc disease), lumbosacral 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 Essential (primary) hypertension Hyperlipidemia, unspecified Insomnia Migraine Personal history of nicotine dependence Vitamin D deficiency Surgical History History of bilateral tubal ligation History of colonoscopy 2011 Port-A-Cath in place (03/18/22) Family History Mother CAD (coronary artery disease) Other Cancer Chronic kidney disease (CKD) Hyperlipidemia Hypertension Psychiatric illness Stroke Suicide Denies family history of Diabetes Clotting disorder Dementia Anesthesia complication Bleeding disorder Lung disease Social History Smoking and tobacco status: current every day smoker Second hand smoke exposure: Yes Smoking risk assessment/counseling performed?: Yes Alcohol intake: never Desire information about alcohol rehabilitation?: No Counseling given: No Desire information about substance/drug rehabilitation?: No Counseling given: No Adopted: No Caregiver/support person: No Lives independently: Yes Household members: other Marital status: Single Number of children: 1 service: No History of recent travel: No Current gender identity: Female Data Anesthesia 07/12/22 05:19 07/12/22 05:19 Short CBC 07/12/22 Range/Units 05:19 WBC 8.5 (4.0-10.0) 10^3/uL Hgb 10.0 L (11.5-15.3) g/dL Hct 33.7 L (37.0-47.0) % MCV 92.1 (81-99) fl Plt Count 582 H (130-400) 10^3/cmm Neut % (Auto) 52.0 % Neut # (Auto) 4.40 (1.8-7.7) 10^3/uL BMP 07/12/22 05:19 Sodium 140 Potassium 4.5 Chloride 105 Carbon Dioxide 25 BUN 37 H Creatinine 2.6 H Glucose 98 Calcium 9.2 Cardiac Studies: No Data to Display
--- NOTE | 2022-07-12 14:14 | PC.NURSE ---
Dr. Kline assessing patient after a fall, patient wanted pain medication or to be put out. Patient stated she had pain medication in bottom of purse. This nurse went back in after assessment complete and ask patient about pain medication. Patient stated all she had was aspercream in purse and had not used it. Visitor staying in room with patient stated the patient came out of bathroom after shower with a dr. diaz in hand. Gummy bears and a package of crackers were on the floor by patients bed. Patient has been non-compliant with nurse, aid, physician and ops surgery nurse.
--- NOTE | 2022-07-12 14:18 | PC.NURSE ---
Patient left for surgery approximately 2 pm
[2022-07-12] MEDS: sodium chloride 0.9% 1,000 ML 30 ML IV (14:28)
--- NOTE | 2022-07-12 15:21 | PM.OP ---
Operative Report Date of procedure: July 12, 2022 Pre-op diagnosis: Preop Diagnosis Left breast cancer Procedure done: 1-Incision and drainage of post Left-mastectomy wound 2-Sharp debridement of the wound Implants: Packing using wet-to-dry Kerlix Specimens removed/disposition: Swabs for cultures and sensitivities Surgeon: Piter Dominguez MD Labor Relations Specialist: racking technician Lacey Circulating nurse Radha Anesthesia: MAC (correctional maintenance technician Glenn Hayden) Estimated blood loss (mL): 5 Procedure: After identifying the patient holding area, The left pectoral area was marked before the procedure by myself, patient was then taken to the operative suite, was placed in supine position,Patient is already on therapeutic IV antibiotics,,Patient was intubated by the anesthesia provider, prep and drape of the Left pectoral area was done under the usual sterile technique Time-out was done verifying the patient's name/date of /planned procedure and destination after the procedure, all were in agreement. Started by excising the unhealthy necrotic indurated tissues of the wound.Superior and inferior flaps were excised and short sutures marked superior and long sutures marked inferior, Incision was created at the skin level and went all the way down to the subcutaneous tissues and Underlying muscular tissues, including unhealthy tissues.Excised tissues Were sent for permanent pathology. Wound measurements ; Pre Debridement measurements; 12x5.5x0.8 centimeter Post-debridement measurement;12.2 x 6.5 x 1 cm Sharp Debridement all the way to the healthier subcutaneous level And muscular layer using curved [place] scissor. Swabs were sent for cultures and sensitivities as there was a pool of purulent discharge towards the lateral aspect of the wound cavity.Otherwise, the wound bed looks healthier. Irrigation of the wound was done with warm saline Using Pulsavac 2 L of warm saline, followed by appropriate hemostasis,I elected to apply a series of interrupted figure of eight 2-0 nylon Sutures to approximate the skin edges medially and laterally left the central part open for packing. packing of the wound was done with Kerlix impregnated followed by ABDs and sports bra. Patient tolerated the procedure well, count of instruments and sponges were completed at the end of the procedure. Patient was then taken to the recovery area in stable condition. I was present for the whole entire procedure.
--- NOTE | 2022-07-12 16:23 | ANE.PACU2 ---
Inpatient post-anesthesia follow up: Airway intact: Yes Vital signs: Temperature 97.4 F Pulse Rate 71 Respiratory Rate 16 Blood Pressure 106/52 Pulse Oximetry 92 Oxygen Delivery Me thod Room Air Oxygen Flow Rate Fraction of Inspir ed Oxygen Hydration adequate: Yes Nausea and vomiting: No Pain level: 1 Mental status: Baseline
--- NOTE | 2022-07-12 16:33 | P.SS_ITS ---
Short Stay Summary Providers Date of Admit/Discharge: 07/12/22 Attending Provider: Piter Dominguez MD Primary Care Provider: MENA Nieto Chief Complaint: IV antibiotics HPI History of Present Illness Ms. Guera Mills is a 52 year old female undergone uneventful left total mastectomy and left axillary sentinel lymph node biopsy on 06/27/2022. Patient overall did well after surgery and unfortunately yesterday presented to the office for follow-up was found to have dehiscence of her wound with the drain being exposed. It was taken out and patient was directly admitted to the hospital under my service for observation with the plan for starting parenteral antimicrobial therapy and surgical debridement in the OR today. Patient maintained to have stable vital signs and appropriate lab work. Seen yet by oncology service. According to patient's friend there is a questionable compliance with her incision and wound care. Unfortunately patient continues to smoke. Patient was taken today for surgery for debridement and cultures were obtained. Review of Systems General: Reports: 10 or more systems reviewed and unremarkable except in HPI and below Home Meds/Allergies Home Medications and Allergies Home Medications Medication Instructions Recorded Confirmed Type amitriptyline 25 mg tablet 25 - 50 mg PO BEDTIME 06/24/22 07/12/22 History ergocalciferol (vitamin D2) 1,250 50,000 unit PO Q7D 07/12/22 07/12/22 History mcg (50,000 unit) capsule ibuprofen 200 mg tablet 2,000 mg PO Q6H PRN Pain 07/12/22 07/12/22 History venlafaxine 150 mg 150 mg PO QAM 07/12/22 07/12/22 History capsule,extended release 24 hr (Effexor XR) Allergies Allergy/AdvReac Type Severity Reaction Status Date / Time morphine Allergy Unknown vomit Verified 07/12/22 16:43 PFSH Acute PFSH: Medical History Anxiety COPD, mild DDD (degenerative disc disease), lumbosacral 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 Essential (primary) hypertension Hyperlipidemia, unspecified Insomnia Migraine Personal history of nicotine dependence Vitamin D deficiency Surgical History History of bilateral tubal ligation History of colonoscopy 2011 Port-A-Cath in place (03/18/22) Family History Mother CAD (coronary artery disease) Other Cancer Chronic kidney disease (CKD) Hyperlipidemia Hypertension Psychiatric illness Stroke Suicide Denies family history of Diabetes Clotting disorder Dementia Anesthesia complication Bleeding disorder Lung disease Social History Smoking and tobacco status: current every day smoker Second hand smoke exposure: Yes Smoking risk assessment/counseling performed?: Yes Alcohol intake: never Desire information about alcohol rehabilitation?: No Counseling given: No Desire information about substance/drug rehabilitation?: No Counseling given: No Adopted: No Caregiver/support person: No Lives independently: Yes Household members: other Marital status: Single Number of children: 1 service: No History of recent travel: No Current gender identity: Female Vitals/I&O/Wt Last Vital Signs Temp 97.7 F 07/12/22 16:30 Pulse 78 07/12/22 16:30 Resp 14 07/12/22 16:30 BP 99/65 07/12/22 16:30 Pulse Ox 91 07/12/22 16:30 O2 Del Method 07/12/22 16:30 07/12/22 07/12/22 07/12/22 06:59 14:59 22:59 Intake Total 50 / 50 1050 / 1050 1600 / 2650 Output Total 0 / 0 5 / 5 Balance 50 / 50 1050 / 1050 1595 / 2645 Weight last 48 hrs Weight 127 lb Physical Exam Narrative: Patient is recovering slowly from anesthesia and planning to discharge home today once meet the appropriate criteria. Hospital Course Hospital Course Undergone uneventful postoperative course. Maintained to have stable vital signs. No fevers. Regular diet is offered to the patient. Prior to discharge home. Discharge Summary Wound care instructions were given to the patient and her friend. SSS Data Data Completed and Pending: Completed Studies During Hospitalization Category Date Time Status XR lumbar spine 2 -3V* [id number] Stat Exams 07/12/22 12:57 Completed XR sacrum coccyx min 2V [id number] Stat Exams 07/12/22 12:57 Completed Pending at discharge Category Date Time Status Anaerobic Culture Routine Lab 07/12/22 15:00 Received Wound Culture and Gram Stain Routin e Lab 07/12/22 15:00 Received Pathology: Surgic al [PTH] Routine Pth 07/12/22 15:27 Ordered Procedures Performed: Debridement of postmastectomy wound on the left pectoral area. Diagnoses at Discharge Discharge Diagnosis (1) Personal history of nicotine dependence: Status: Chronic (2) Wound dehiscence: Status: Acute (3) Back pain: Status: Acute Discharge Plan Discharge Patient Disposition: Home Condition: Stable Prescriptions: New hydrocodone-acetaminophen 5-325 mg tablet 1 tab PO Q6H PRN (Reason: pain) Qty: 28 0RF Continued hydrocortisone [Proctozone-HC] 2.5 % cream with perineal applicator 1 applic [place] DAILY PRN (Reason: hemorrhoids) Qty: 30 2RF albuterol sulfate [ProAir HFA] 90 mcg/actuation HFA aerosol inhaler 2 puff INHALATION Q6H PRN (Reason: shortness of breath or wheezing) Qty: 8.5 2RF clonazepam [Klonopin] 0.5 mg tablet 0.5 mg PO BID Qty: 60 2RF fenofibrate nanocrystallized [Tricor] 145 mg tablet 145 mg PO DAILY Qty: 30 2RF lisinopril 20 mg tablet 20 mg PO DAILY Qty: 30 2RF propranolol 20 mg tablet 20 mg PO BID Qty: 60 2RF sulfamethoxazole-trimethoprim [Bactrim DS] 800-160 mg tablet 1 tab PO BID 10 Days Qty: 20 0RF Rx Instructions: rx filled 07/11/22 10d/s meclizine 25 mg tablet 25 mg PO BID PRN (Reason: nausea) Qty: 30 0RF amitriptyline 25 mg tablet 25 - 50 mg PO BEDTIME hydrocodone-acetaminophen 5-325 mg tablet 1 tab PO Q6H PRN (Reason: pain) Qty: 28 0RF ibuprofen 200 mg Tablet 2,000 mg PO Q6H PRN (Reason: Pain) ergocalciferol (vitamin D2) 1,250 mcg (50,000 unit) capsule 50,000 unit PO Q7D Rx Instructions: on mondays Effexor XR 150 mg capsule,extended release 24hr 150 mg PO QAM Discharge Orders: Discharge Order (Routine); Ordered 07/12/22 Ordered By: Piter Dominguez Referrals: Piter Dominguez MD [Physician] - (Return to surgery office in 2 days) Discharge Diet: Advance as tolerated Discharge Activity: Limit activity as instructed Patient Instructions: Opioid Safety Activity Restrictions/Additional Instructions: 1. Patient can can have sponge bath. 2. Remove packing tomorrow and start packing using wet-to-dry Kerlix followed by ABDs and sports bra 3. Up and walking as tolerated 4. Do not lift more than 5 pounds first 2 weeks after surgery and not more than 25 pounds 6 to 8 weeks after surgery. 5. Do not operate heavy machinery or drive while using pain medications. 6.Contact the office or return to the ER for worsening nausea vomiting fevers or chills, or noticing any redness around incision sites or discharge. Attestations Medical Necessity Statement*: Observation status Time Spent in Patient Care*: greater than 30 min Time Spent in Smoking Cessation: Time spent discussing smoking cessation with patient: more than 10 minutes Specific Discharge Activities: Specific discharge activities: educating patient and educating and/or supporting family/caregiver Status at Discharge: Cognitive status at discharge: cognitively intact , Behavioral status at discharge: cooperative , Functional status at discharge: independent ambulation Overall status at discharge: patient is progressing back to baseline Quality Metrics Clinical Quality Measures: [ No reported AMI, CVA or VTE this stay ] Coding Level of Care Code Acute Tractor Trailer Moving Van Driver for [place] Fwd Diagnoses Personal history of nicotine dependence Z87.891 Wound dehiscence T81.30XA Back pain M54.9
[2022-07-12] MEDS: propranolol 20 mg Tablet PO (18:14)
[2022-07-12] MEDS: CLONazepam 0.5 mg Tablet PO (18:14)
--- NOTE | 2022-07-12 21:28 | PC.NURSE ---
At shift change pt was caught smoking in her bathroom. She was educated on the dangers of smoking in the hospital as well as the hospital policy, she said that she understood. An hour later the ORCHARD PRUNER found a pipe in the pt bathroom, pt was again educated on the smoking policy. She agreed to her her belongings searched by staff, a arborer and a knife and more home medications were found and taken and pt was instructed that she may have them back when she left.
[2022-07-12] MEDS: HYDROcodone-acetaminophen 5-325 mg Tablet 1 TAB PO (22:31)
--- NOTE | 2022-07-13 00:42 | PC.NURSE ---
0 Patient given discharge instructions. Questions answered, verbalized understanding. PIV removed intact. Awaiting ride to get here to pick her up per patient. Will continue to monitor patient until she discharges.
--- NOTE | 2022-07-13 01:43 | PC.NURSE ---
2315 Patient discharged via wheelchair by PING PONG TABLE ASSEMBLER. Patient belongings given back to patient from [facility].
== END 2022-07-13 01:45 | disposition home or self-care (01) ==
PROVIDERS: Admitting Provider Surgery; PCP Nurse Practitioner; Visit Provider Surgery
PROC: (CPT 11043; principal; 2022-07-12 15:30)
DX: C50.912 Malignant neoplasm of unspecified site of left female breast (principal); T81.30XA Disruption of wound, unspecified, initial encounter; Z90.12 Acquired absence of left breast and nipple; F17.200 Nicotine dependence, unspecified, uncomplicated; J44.9 Chronic obstructive pulmonary disease, unspecified; I10 Essential (primary) hypertension; E78.5 Hyperlipidemia, unspecified; E55.9 Vitamin D deficiency, unspecified; F41.9 Anxiety disorder, unspecified; M54.50 Low back pain, unspecified; Z91.81 History of falling
CPT/HCPCS: 11043; 11046 ×2; 36415; 72100; 72220; 80048; 85025; 87070; 87075; 87077; 87186; 87205; 88304; 96372; G0378; G0379; J1100; J2060; J2405; J2543; J2704; J3010; J7030

== ENCOUNTER 2022-07-13 05:41 | Emergency (ER) | payer MEDICAID, SELFPAY ==
[2022-07-13 05:47] VITALS: BP 119/74; PULSE 107; RESP 19; TEMP 36.7; O2SAT 98; BMI 19.8
[2022-07-13 05:54] VITALS: O2SAT 95
--- NOTE | 2022-07-13 06:03 | ED_ITS ---
HPI - General Adult General: Chief complaint: General Medical Stated complaint: Post surgical pain Time Seen by Provider: 07/13/22 06:01 History of Present Illness: 52-year-old female who comes in for dressing change. She had a mastectomy 2 weeks ago. Yesterday she had an area of the previous incision opened and drained and packed because of infection. She states that the drainage has soaked through the outer dressing. She is also complaining of severe pain in her back which she states is chronic. She denies fever. She has been taking hydrocodone at home for her pain. She does not have any care set up for wound follow-up. 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 Essential (primary) hypertension Hyperlipidemia, unspecified Insomnia Migraine Personal history of nicotine dependence Vitamin D deficiency Surgical History History of bilateral tubal ligation History of colonoscopy 2011 Port-A-Cath in place (03/18/22) Family History Mother CAD (coronary artery disease) Other Cancer Chronic kidney disease (CKD) Hyperlipidemia Hypertension Psychiatric illness Stroke Suicide Denies family history of Diabetes Clotting disorder Dementia Anesthesia complication Bleeding disorder Lung disease Social History Smoking and tobacco status: current every day smoker Second hand smoke exposure: Yes Smoking risk assessment/counseling performed?: Yes Alcohol intake: never Desire information about alcohol rehabilitation?: No Counseling given: No Desire information about substance/drug rehabilitation?: No Counseling given: No Adopted: No Caregiver/support person: No Lives independently: Yes Household members: other Marital status: Single Number of children: 1 service: No History of recent travel: No Current gender identity: Female Physical Exam Const: COMMON NORMALS: no acute distress, patient oriented x3, alert and well nourished Eye: COMMON NORMALS: conjunctivae normal CONJUNCTIVA: Yes conjunctivae normal Neck/C-Spine: COMMON NORMALS: supple Chest: OTHER: Healing incision with sutures in place across the left chest area from her recent mastectomy. 4 cm area in the section of the incision that has been opened, packed with saline soaked gauze. Serosanguineous drainage. There is no malodorous purulent drainage noted. There is no skin erythema or induration. Neuro: COMMON NORMALS: patient oriented x3 SENSORIUM/ORIENTATION: Yes alert Course ED course: saline soaked dressing has been replaced and a dressing applied with ABD pad and foam tape. Vital Signs: Vital signs: Vital Signs Temperature 98.1 F 07/13/22 05:47 Pulse Rate 107 H 07/13/22 05:47 Respiratory Rate 19 H 07/13/22 05:47 Blood Pressure 119/74 07/13/22 05:47 Pulse Oximetry 95 07/13/22 05:54 Oxygen Delivery Me thod 07/13/22 05:54 MDM - General Adult Medical Decision Making Patient has a clean appearing wound on the left chest that I have changed the packing and replaced the dressing on. She has been given 1 Percocet 5 for pain. I have sent her supplies to change her packing the next couple of days. She needs to contact her surgeon to get set up with wound care. Discharge Plan Discharge Patient Disposition: Home Clinical Impression: Visit for wound check, Chronic back pain Condition: Stable Prescriptions: No Action hydrocortisone [Proctozone-HC] 2.5 % cream with perineal applicator 1 applic [place] DAILY PRN (Reason: hemorrhoids) Qty: 30 2RF albuterol sulfate [ProAir HFA] 90 mcg/actuation HFA aerosol inhaler 2 puff INHALATION Q6H PRN (Reason: shortness of breath or wheezing) Qty: 8.5 2RF clonazepam [Klonopin] 0.5 mg tablet 0.5 mg PO BID Qty: 60 2RF fenofibrate nanocrystallized [Tricor] 145 mg tablet 145 mg PO DAILY Qty: 30 2RF lisinopril 20 mg tablet 20 mg PO DAILY Qty: 30 2RF propranolol 20 mg tablet 20 mg PO BID Qty: 60 2RF sulfamethoxazole-trimethoprim [Bactrim DS] 800-160 mg tablet 1 tab PO BID 10 Days Qty: 20 0RF Rx Instructions: rx filled 07/11/22 10d/s meclizine 25 mg tablet 25 mg PO BID PRN (Reason: nausea) Qty: 30 0RF amitriptyline 25 mg tablet 25 - 50 mg PO BEDTIME hydrocodone-acetaminophen 5-325 mg tablet 1 tab PO Q6H PRN (Reason: pain) Qty: 28 0RF ibuprofen 200 mg Tablet 2,000 mg PO Q6H PRN (Reason: Pain) ergocalciferol (vitamin D2) 1,250 mcg (50,000 unit) capsule 50,000 unit PO Q7D Rx Instructions: on mondays Effexor XR 150 mg capsule,extended release 24hr 150 mg PO QAM hydrocodone-acetaminophen 5-325 mg tablet 1 tab PO Q6H PRN (Reason: pain) Qty: 28 0RF Discharge Orders: Discharge ED (Routine); Ordered 07/13/22 Ordered By: Betsy Johnson Referrals: Alex Bach, LITERACY TEACHER-C [Primary Care Provider] - Discharge Diet: Advance as tolerated Discharge Activity: Increase activity as tolerated Patient Instructions: Opioid Safety, Pain Management, Wound Care (General) Activity Restrictions/Additional Instructions: Change the packing daily. Keep the area covered. Continue to wear your compression garment. Return if you have increased redness, increased drainage, fever or purulent drainage. Follow-up as scheduled with your surgeon. Coding Level of Care Code ED Cheese Blender for Alf Dave
[2022-07-13 06:23] VITALS: RESP 17; O2SAT 99
[2022-07-13] MEDS: oxyCODONE-APAP 5-325 mg Tablet 1 TAB PO (06:23)
[2022-07-13 06:24] VITALS: PULSE 94; RESP 17; O2SAT 95
== END 2022-07-13 06:40 | disposition home or self-care (01) ==
PROVIDERS: Emergency Provider Emergency Medicine; PCP Nurse Practitioner
DX: Z48.01 Encounter for change or removal of surgical wound dressing (principal); G89.29 Other chronic pain; M54.9 Dorsalgia, unspecified; Z90.12 Acquired absence of left breast and nipple; F17.210 Nicotine dependence, cigarettes, uncomplicated; J44.9 Chronic obstructive pulmonary disease, unspecified; Z85.3 Personal history of malignant neoplasm of breast; I10 Essential (primary) hypertension; E78.5 Hyperlipidemia, unspecified
CPT/HCPCS: 99283

== ENCOUNTER → 2022-07-14 13:26 | Outpatient (BNVA) | payer MEDICAID, SELFPAY | PROVIDERS: PCP Nurse Practitioner; Visit Provider Surgery | DX: Z98.890 Other specified postprocedural states (principal) | CPT/HCPCS: 99024 ==

== ENCOUNTER → 2022-07-26 13:11 | Outpatient (BNVA) | payer MEDICAID, SELFPAY | PROVIDERS: PCP Nurse Practitioner; Visit Provider Surgery | DX: Z09 Encounter for follow-up examination after completed treatment for conditions other than malignant neoplasm (principal) | CPT/HCPCS: 99024 ==

== ENCOUNTER 2022-08-04 08:30 | Oncology outpatient (recurring) (ONCR) | payer MEDICAID, SELFPAY ==
[2022-07-04] MEDS: alteplase 1 mg/mL SDV 2 mL 2 MG INTRACATH (16:38)
[2022-07-21 10:46] LABS: CA 15-3 35.3 U/mL (0-25); Ferritin 98 ng/mL (15-150); Iron 62 ug/dL (37-145); Percent Saturation 15.6 % (20-50); Total Iron Binding Capacity 396 mcg/dl; Unsaturated Iron Binding 334 ug/dL (112-347); Vitamin B12 552 pg/mL (232-1245)
== END 2022-08-13 23:59 | disposition home or self-care (01) ==
PROVIDERS: PCP Nurse Practitioner; Visit Provider Internal Medicine Hematology & Oncology
DX: C50.812 Malignant neoplasm of overlapping sites of left female breast
CPT/HCPCS: 36415; 36591; 82607; 82728; 83540; 83550; 86300; 96523; 99024; 99215; J2997

== ENCOUNTER → 2022-08-09 10:10 | Outpatient (BNVA) | payer MEDICAID, SELFPAY | PROVIDERS: PCP Nurse Practitioner; Visit Provider Surgery | DX: Z09 Encounter for follow-up examination after completed treatment for conditions other than malignant neoplasm (principal) | CPT/HCPCS: 99024 ==

== ENCOUNTER → 2022-09-20 12:34 | Outpatient (BNVA) | payer MEDICAID, SELFPAY | PROVIDERS: PCP Nurse Practitioner; Visit Provider Surgery | DX: Z95.828 Presence of other vascular implants and grafts (principal) | CPT/HCPCS: 99213 ==

== ENCOUNTER 2022-10-13 07:01 | Day surgery (SDC) | payer MEDICAID, SELFPAY ==
[2022-10-12 08:04] VITALS: BMI 20.3
[2022-10-13] VITALS (8 sets, daily range): BP systolic 110–183; BP diastolic 72–117; PULSE 45–64; RESP 16–18; TEMP 36.1–36.4; O2SAT 93–98
[2022-10-13] MEDS: sodium chloride 0.9% 1,000 ML 30 ML IV (07:37)
[2022-10-13] MEDS: HYDROmorphone 1 mg/mL INJ 1 mL 0.5 MG IVP (08:29)
--- NOTE | 2022-10-13 08:37 | PC.NURSE ---
Pt verbally combative with nursing. Stating the preop nurse yesterday was a bitch . Stated she normally doesn't take her meds but did this morning because of the preop nurse. Pt kept eyes closed during preop process and did not offer much information for nursing without being verbally abusive to nursing. Pt put dimension warehouse supervisor light that her IV was bothering her. RN Priyanka assessed her and stated IV look patent and dripping without problem. But would tell her nurse she is requesting another IV. Less than 2 mins later the patient put dimension warehouse supervisor light again and had pulled IV out herself because you were taking too long . Education provided to pt about safety and importance of not removing her own IV. She stated she has done it before and it wasn't that big of a deal. New IV placed after 3 attempts. During IV pokes pt stated it felt good and loved that feeling. Dr Mejia ordered 0.5 mg Dilaudid for generalized pain. While received Dilaudid from nurse she stated Ahhhh, I can feel it now. Ahhh. Pt stated 0.5 mg was a small dose because of her IV pain med tolerance. Monitoring continuous pulse ox. More warm blankets provided. CLWR and denies other needs at this time. As nurse was leaving the room she stated Thank you for taking such great care of me.
--- NOTE | 2022-10-13 09:07 | W.PM.OPSUD ---
Surgery/Procedure H&P Update DATE OF PROCEDURE: October 13, 2022 DATE H&P PERFORMED: 09/20/22 H&P UPDATE INFORMATION: I have reviewed H&P completed within last 30 days, I have examined patient prior to procedure and No changes to prior documentation PREOP DIAGNOSIS: Port-A-Cath in place PLANNED PROCEDURE: Operation Date: 10/13/22 08:45 Proposed Procedures p [id number] port removal Z95.828(Not Applicable) - Germain Martinez DO
[2022-10-13] MEDS: ceFAZolin 2,000 MG in sodium chloride 0.9% (plus) 50 ML 100 MG IV (10:17)
[2022-10-13] MEDS: lidocaine-epi 2% 20 mL INJ INJECTION (10:23)
--- NOTE | 2022-10-13 11:26 | P.ANESASSM_ITS ---
Pre-Anesthetic Assessment Height/Weight: Height 1.7 m Weight 58.967 kg Temp Pulse Resp BP Pulse Ox O2 Del Method 97.0 F L 46 L 18 161/106 93 10/13/22 11:02 10/13/22 11:16 10/13/22 11:16 10/13/22 11:16 10/13/22 11:16 10/13/22 11:16 Preop Diagnosis: Port-A-Cath in place Operation Date: 10/13/22 08:45 Proposed Procedures p [id number] port removal Z95.828(Not Applicable) - DO Yasemin Stanley anesthetic complications: none Was Beta Mamta taken within 24 hours: Yes Was Clonidine taken within 24 hours: N/A Last intake: Intake Last Liquid Date 10/12/22 Last Liquid Time 23:45 Last Solid Date 10/10/22 Social Tobacco and No alcohol Mariela Exam alert, oriented x 3 and regular rate & rhythm Airway Submandibular: within normal limits Cervical ROM: within normal limits Mallampati: Class II Dentition: chipped Comments: Comments: Very poor dentition Pulmonary Chronic Obstructive Pulmonary Disease CV/HEM Hypertension Metabolic Hyperlipidemia Neuropsych Anxiety and Depression Anesthetic Plan ASA status: 3 Anesthesia: MAC Medications/Allergies Home Medications Medication Instructions Recorded Confirmed Last Taken Type hydrocortisone 2.5 % topical cream 1 applic MT DAILY PRN hemorrhoids 02/24/22 10/13/22 1 Week Ago Rx with perineal applicator #30 grams ~10/06/22 (Proctozone-HC) albuterol sulfate 90 mcg/actuation 2 puff inhalation Q6H PRN 05/02/22 10/13/22 10/12/22 Rx aerosol inhaler (ProAir HFA) shortness of breath or wheezing #8.5 grams docusate sodium 100 mg capsule 100 mg PO BID #10 caps 10/13/22 Unknown Rx (DOK) hydrocodone 5 mg-acetaminophen 325 1 tab PO Q6H PRN pain #10 tabs 10/13/22 Unknown Rx mg tablet propranolol 20 mg tablet 20 mg PO DAILY 10/13/22 10/13/22 10/13/22 History Allergies Allergy/AdvReac Type Severity Reaction Status Date / Time morphine Allergy Unknown vomit Verified 10/13/22 07:27 Current Medications Generic Name Dose Route Start Last Admin Trade Name Freq PRN Reason Stop Dose Admin Hydromorphone HCl 0.5 mg 10/13/22 07:09 10/13/22 08:29 Hydromorphone 1 Mg/Ml Inj 1 Ml IVP 0.5 mg ONCE PRN Administration For preop pain/anxiety Sodium Chloride 1,000 mls @ 30 mls/hr 10/13/22 07:15 10/13/22 11:17 Sodium Chloride 0.9% IV 10/14/22 07:14 Infused .Q24H GERMAN Infusion Cefazolin Sodium 2,000 mg/ 50 mls @ 100 mls/hr 10/13/22 07:10 10/13/22 10:25 Sodium Chloride IV 10/13/22 07:39 Infused EQUIPMENT INSPECTOR ONE Infusion Protocol Lidocaine/Epinephrine 20 ml 10/13/22 10:23 10/13/22 10:23 Lidocaine-Epi 2% 20 Ml Inj INJECTION 10/13/22 10:24 6 ml ONCE ONE Administration PFS Anesthesia Medical History Anxiety Back pain COPD, mild DDD (degenerative disc disease), lumbosacral 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 Essential (primary) hypertension Hyperlipidemia, unspecified Insomnia Migraine Personal history of nicotine dependence Vitamin D deficiency Wound dehiscence Surgical History (Updated 09/20/22 @ 14:45 by Germain Martinez DO) History of bilateral tubal ligation History of colonoscopy 2011 Port-A-Cath in place (03/18/22) Family History Mother CAD (coronary artery disease) Other Cancer Chronic kidney disease (CKD) Hyperlipidemia Hypertension Psychiatric illness Stroke Suicide Denies family history of Diabetes Clotting disorder Dementia Anesthesia complication Bleeding disorder Lung disease Social History Smoking and tobacco status: current every day smoker Second hand smoke exposure: Yes Smoking risk assessment/counseling performed?: Yes Alcohol intake: never Desire information about alcohol rehabilitation?: No Counseling given: No Desire information about substance/drug rehabilitation?: No Counseling given: No Adopted: No Caregiver/support person: No Lives independently: Yes Household members: other Marital status: Single Number of children: 1 service: No History of recent travel: No Current gender identity: Female Data Anesthesia Cardiac Studies: No Data to Display
--- NOTE | 2022-10-13 13:53 | PM.OP ---
Operative Report Date of procedure: October 13, 2022 Pre-op diagnosis: Preop Diagnosis Port-A-Cath in place Post-op diagnosis: other (Mediport removed) Procedure done: Mediport removal Specimens removed/disposition: Mediport Surgeon: Dr. Germain Martinez DO Anesthesia: MAC Estimated blood loss (mL): 5 Complications: None apparent Brief History: The is a 52-year-old female who who has a Mediport for chemotherapy to treat breast cancer. She is refusing any further chemotherapy and desires Mediport removal. Talk to her extensively about the risks of discontinuing chemotherapy but she is adamant. The risks and benefits were explained and understood. I told her I am willing to replace the Mediport at any time if she changes her mind. Procedure: Patient was taken to the operating room and her right chest was prepped and draped in a sterile manner. 1% lidocaine with epinephrine was infiltrated around the MediPort and catheter. Using a 15 blade the previous incision was opened, the subcutaneous tissue was divided using electrocautery and MediPort along the catheter was dissected free from the surrounding subcutaneous tissue and removed entirely. The wound was irrigated with saline, hemostasis ensured with electrocautery. A figure of 8 stitch was placed in the catheter tunnel with 3-0 Vicryl. Subcutaneous tissue was approximated using 3-0 Vicryl suture and skin was closed using running subcuticular 4-0 Monocryl suture. 4x4 and sterile dressings were used as a pressure dressing. The patient was transferred to the recovery room in stable condition.
--- NOTE | 2022-10-13 17:06 | ANE.PACU2 ---
Inpatient post-anesthesia follow up: Airway intact: Yes Vital signs: Temperature 97.0 F Pulse Rate 46 Respiratory Rate 18 Blood Pressure 161/106 Pulse Oximetry 93 Oxygen Delivery Me thod Room Air Oxygen Flow Rate Fraction of Inspir ed Oxygen Hydration adequate: Yes Nausea and vomiting: No Pain level: 2 Mental status: Baseline
== END 2022-10-13 11:33 | disposition home or self-care (01) ==
PROVIDERS: Visit Provider Surgery
PROC: (CPT 36589; principal; 2022-10-13 08:35)
DX: Z95.828 Presence of other vascular implants and grafts (principal); J44.9 Chronic obstructive pulmonary disease, unspecified; I10 Essential (primary) hypertension; E78.5 Hyperlipidemia, unspecified; F41.9 Anxiety disorder, unspecified; F32.A Depression, unspecified; F17.200 Nicotine dependence, unspecified, uncomplicated
CPT/HCPCS: 36590; J0690; J1170; J2704; J3010; J7030

== ENCOUNTER → 2022-10-26 16:11 | Outpatient (BNVA) | payer MEDICAID, SELFPAY | PROVIDERS: Visit Provider Surgery | DX: Z09 Encounter for follow-up examination after completed treatment for conditions other than malignant neoplasm (principal) | CPT/HCPCS: 99213 ==

== ENCOUNTER → 2023-05-17 11:23 | Outpatient (BNVA) | payer MEDICAID, SELFPAY | PROVIDERS: PCP Nurse Practitioner; Visit Provider Nurse Practitioner | DX: F31.9 Bipolar disorder, unspecified (principal); F41.9 Anxiety disorder, unspecified; G47.00 Insomnia, unspecified; J44.9 Chronic obstructive pulmonary disease, unspecified; K62.89 Other specified diseases of anus and rectum; E83.52 Hypercalcemia; E78.5 Hyperlipidemia, unspecified; Z79.899 Other long term (current) drug therapy | CPT/HCPCS: 80053; 85025 ==

== ENCOUNTER 2024-01-18 14:07 | Inpatient (IN) | payer SELFPAY ==
[2024-01-18 14:12] VITALS: BP 110/85; PULSE 114; TEMP 36.5; O2SAT 100
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
--- NOTE | 2024-01-18 14:29 | XRR_ITS ---
PROCEDURE INFORMATION: Exam: XR Chest Exam date and time: 01/18/2024 2:36 PM Age: 53 years old Clinical indication: Tachypnea; Additional info: Tachy TECHNIQUE: Imaging protocol: Radiologic exam of the chest. Views: 1 view. COMPARISON: CR XR chest 1V portable [id number] 03/18/2022 12:24 PM FINDINGS: Lungs: Unremarkable. No consolidation. Pleural spaces: Unremarkable. No pleural effusion. No pneumothorax. Heart/Mediastinum: Unremarkable. No cardiomegaly. Bones/joints: Mild deformity from healed bilateral rib fractures. Soft tissues: Prior left chest wall surgery. XR/XR chest 1V portable [id number] IMPRESSION: No acute findings.
[2024-01-18] MEDS: diphenhydrAMINE 50 mg/mL SDV 1mL IVP (15:25)
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
[2024-01-18 15:32] VITALS: BP 138/106; PULSE 79; RESP 16; O2SAT 95
[2024-01-18 15:39] LABS: Basophils # 0.1 10^3/uL (0.0-0.1); Basophils % 0.3 %; Eosinophils # 0.1 10^3/uL (0.0-0.8); Eosinophils % 0.4 %; Hematocrit 26.4 % (36-47); Lymphocytes # 1.3 10^3/uL (0.8-4.8); Lymphocytes % 4.8 %; Mean Corpuscular HGB Conc 32.6 g/dL (30-55); Mean Corpuscular Hemoglobin 25.4 pg (27-33); Mean Corpuscular Volume 77.9 fl (85-98); Mean Platelet Volume 11.1 fL (7.4-10.4); Monocytes % 3.5 %; Neutrophils # 22.51 10^3/uL (1.8-7.7); Neutrophils % 83.3 %; Nucleated Red Blood Cells % 0 %; Platelet Count 561 10^3/cmm (157-399); Red Blood Count 3.39 10^6/uL (3.85-5.65); Red Cell Distribution Width 17.2 % (12.1-15.1); White Blood Count 27.03 10^3/uL (3.29-11.43)
[2024-01-18 16:01] LABS: Alanine Aminotransferase 15 U/L (0-33); Albumin Level 2.8 g/dL (3.5-5.2); Alkaline Phosphatase 213 U/L (35-105); Anion Gap 26.6 (5-19); Aspartate Amino Transferase 33 U/L (0-32); Blood Urea Nitrogen 72 mg/dL (6-20); Calcium 8.8 mg/dL (8.5-10.5); Carbon Dioxide 15 mmol/L (22-29); Chloride 91 mmol/L (98-107); Creatine Phosphokinase 65 U/L (26-192); Globulin 4.9 g/dL (1.3-4.6); Glomerular Filtration Rate 12.8 mL/min (90-130); Glucose 160 mg/dL (65-115); Osmolality Calculated 293 mOsm/kg (285-295); Potassium 3.6 mmol/L (3.5-5.1); Sodium 129 mmol/L (136-145); Total Bilirubin 1.4 mg/dL (0.15-1.2); Total Protein 7.7 g/dL (6.6-8.7)
[2024-01-18 16:13] LABS: Slide Review Slide Review Perform
--- NOTE | 2024-01-18 16:39 | XRR_ITS ---
PROCEDURE INFORMATION: Exam: XR Right Hip Exam date and time: 01/18/2024 4:42 PM Age: 53 years old Clinical indication: Condition or disease; Cancer; Location of cancer or specific organ: Spine; Additional info: Injury? TECHNIQUE: Imaging protocol: Radiologic exam of the right hip. Views: 1 view hip with pelvis when performed. COMPARISON: CT Chest/Abdomen/Pelvis w IV* 07/07/2019 3:14 PM FINDINGS: Bones/joints: No fracture or dislocation is seen about the right hip. No fracture or diastasis is seen about the pelvis. Mixed lucent and sclerotic appearance about the acetabular side of the right hip. No significant joint space narrowing or corresponding similar changes in the femoral head to indicate degenerative changes. This could indicate metastatic involvement with the clinical history. Soft tissues: No significant focal soft tissue abnormality. XR/XR hip RT 2-3V wo/w pel* [id number] IMPRESSION: 1. No fracture or dislocation. 2. Mixed lucent and sclerotic appearance about the acetabular side of the right hip, without corresponding joint space narrowing or corresponding similar changes in the femoral head to indicate degenerative changes. This could indicate metastatic involvement therefore with the clinical history.
[2024-01-18 16:51] LABS: Add Urine Microscopic? NO; Charge for UA Resulting for Rev
[2024-01-18] MEDS: sodium chloride 0.9% 1,000 ML 999 ML IV (16:54)
[2024-01-18] MEDS: HYDROmorphone 1 mg/mL INJ 1 mL IVP (16:55)
[2024-01-18 16:56] VITALS: BP 148/91; O2SAT 97
[2024-01-18 17:06] LABS: Bilirubin Urine Neg (Negative); Blood Urine Neg (Negative); Glucose Urine UA Norm (Normal); Ketones Urine Negative (Negative); Leukocyte Esterase Urine Negative (Negative); Nitrate Urine Negative (Negative); Protein Urine Neg (Negative); Specific Gravity, Urine 1.015 (1.005-1.030); Urine Appearance Clear (CLEAR); Urine Color Yellow (Yellow); Urobilinogen Urine Norm (Negative); pH Urine 5 (5-7)
[2024-01-18 17:23] LABS: Amphetamines Screen Urine Negative (Negative); Barbiturates Screen Urine Negative (Negative); Benzodiazepines Screen Urine Positive (Negative); Cocaine Screen Urine Negative (Negative); Opiate Screen Urine Positive (Negative); PCP Screen Urine Negative (Negative); THC Screen Urine Positive (Negative)
[2024-01-18 17:23] LABS: Lactic Sepsis W/Reflex 2.4 mmol/L (0.5-2.2)
--- NOTE | 2024-01-18 18:18 | P.HP_ITS ---
Providers/Chief Complaint 2 Primary Care Provider: MENA Nieto Chief Complaint: spine cancer, pain History of Present Illness Guera Mills is a 53 year old female who has been on hospice for her breast cancer with metastatic lesion, she was released from the hospital today when illegal drugs were found in her motel room, she was put on 96-hour hold by the motel student development coordinator, patient does not have any family, stating that she has a brother who lives in [place] but he is not able to drive. Patient was sent to the hospital when illegal drugs were noticed in her possession. Patient was also selling her hospice medications/opioids. In the ER she is not very alert and oriented, only answering simple question She is constantly moaning in pain Nurse received a phone call regarding possession of illegal drugs, 1 nurse from [facility] checked on her today they found illegal drugs such as methamphetamine and also noticed that her controlled substance were missing to prescribe for the patient for pain management, reportedly they have been stolen 3 times She was living in a intermediate in [facility] until a week ago when she was released from there as well for possession of methamphetamine. She carries history of drug overdose as well Review of Systems 2 General: Reports: ROS unobtainable due to medical condition Medications/Allergies Home Medications Medication Instructions Recorded Confirmed Last Taken Type albuterol sulfate 90 mcg/actuation 2 puff inhalation Q6H PRN 05/17/23 11/23/23 Unknown Rx aerosol inhaler (ProAir HFA) shortness of breath or wheezing #8.5 grams clonazepam 0.5 mg tablet (Klonopin) 0.5 mg PO BID #60 tabs 05/17/23 11/23/23 Unknown Rx doxepin 100 mg capsule 100 mg PO .at bedtime #30 caps 05/17/23 11/23/23 Unknown Rx hydrocortisone 2.5 % topical cream 1 applic CA DAILY PRN skin 05/17/23 11/23/23 Unknown Rx with perineal applicator irritation #30 grams (Anusol-HC) risperidone 1 mg tablet 1 mg PO DAILY #30 tabs 05/17/23 11/23/23 Unknown Rx venlafaxine 75 mg capsule,extended 75 mg PO DAILY #30 caps 05/26/23 11/23/23 Unknown Rx release 24 hr permethrin 5 % topical cream 1 applic topical Q14D 2 doses #60 11/23/23 11/23/23 Unknown Rx grams prednisone 10 mg tablets in a dose See Rx Instructions PO PER PKG DIR 11/23/23 11/23/23 Unknown Rx pack #21 ea triamcinolone acetonide 0.1 % 1 applic topical TID #30 grams 11/23/23 11/23/23 Unknown Rx topical cream PFSH Acute 2 PFSH: Medical History Back pain Wound dehiscence Vitamin D deficiency Migraine Insomnia Ductal carcinoma of left breast Personal history of nicotine dependence Anxiety COPD, mild DDD (degenerative disc disease), lumbosacral Essential (primary) hypertension Hyperlipidemia, unspecified Surgical History History of bilateral mastectomy 06/27/2022 - [facility] Dr. Dominguez History of removal of Port-a-Cath Port-A-Cath in place (03/18/22) History of colonoscopy 2010 History of bilateral tubal ligation Family History Mother CAD (coronary artery disease) Other Cancer Chronic kidney disease (CKD) Hyperlipidemia Hypertension Psychiatric illness Stroke Suicide Denies family history of Diabetes Clotting disorder Dementia Anesthesia complication Bleeding disorder Lung disease Social History Smoking and tobacco/nicotine status: current every day tobacco/nicotine user Second hand smoke exposure: Yes Alcohol intake: never Substance/Drug Use: current Substance/Drug use frequency: daily Adopted: No Caregiver/support person: No Lives independently: Yes Household members: other Marital status: Single Number of children: 1 service: No Do you think of yourself as: Straight/Heterosexual Current gender identity: Female Vitals/I&O/Wt Last Vital Signs Temp 97.7 F 01/18/24 14:12 Pulse 79 01/18/24 15:32 Resp 16 01/18/24 15:32 BP 148/91 01/18/24 16:56 Pulse Ox 97 01/18/24 16:56 O2 Del Method Room Air 01/18/24 16:56 Physical Exam 2 Narrative: Cachectic, malnourished Sarcopenia Oriented to herself only Moaning in pain constantly Multiple rash all over her body Cachectic, malnourished Extremely weak and lethargic Able to answer simple questions only Data 01/18/24 15:05 01/18/24 15:05 A&P Assessment and plan (1) Anxiety: (2) Bipolar depression: (3) Acute renal failure: Qualifiers: Acute renal failure type: unspecified Qualified Code(s): N17.9 - Acute kidney failure, unspecified (4) Hypercalcemia: (5) Leucocytosis: (6) Ductal carcinoma of left breast: (7) COPD, mild: (8) Insomnia: (9) Unable to care for self: (10) Hospice care patient: (11) Metabolic acidosis: (12) Acute kidney injury superimposed on chronic kidney disease: Plan breast cancer with mets to bone Left breast mass T8 metastatic disease Severe metabolic acidosis secondary to ketones and dehydration, lactic acid mildly high Significant leukocytosis Hypovolemic hyponatremia Acute on chronic kidney disease Polysubstance abuse Metabolic encephalopathy related to dehydration Cachectic, malnourished She was on hospice, I will start her on scheduled dose of opioids Will start her on IV fluids Place Corral catheter for comfort I will admit as inpatient hospice will get evaluated by Dr. Reina if he could take her on his service Will consult psych as well patient carries history of bipolar disorder As per the EMS report illegal drugs were found in her possession She was on hospice care we will keep her as comfort measures only in the hospital Case management consultation Anticipate improvement in creatinine with IV fluid hydration I will put her on bicarb tablets Attestations 2 Medical Necessity Statement*: More than 2 midnights anticipated Diagnoses Anxiety F41.9 Bipolar depression F31.9 Acute renal failure N17.9 Acute renal failure type: unspecified Hypercalcemia E83.52 Leucocytosis D72.829 Ductal carcinoma of left breast C50.912 COPD, mild J44.9 Insomnia G47.00 Unable to care for self Z78.9 Hospice care patient Z51.5 Metabolic acidosis E87.20 Acute kidney injury superimposed on chronic kidney disease N17.9; N18.9
[2024-01-18 18:45] LABS: Reflex Lactate Order REFLEX LACTIC ORDERD
[2024-01-18 18:55] VITALS: BP 160/113; PULSE 65; RESP 18; O2SAT 96
[2024-01-18 19:21] LABS: Lactic Acid level (Lactate) 2.7 mmol/L (0.5-2.2)
[2024-01-18] MEDS: lactated ringers 1,000 ML 999 ML IV ×2 (20:13→21:27)
[2024-01-18 20:23] VITALS: BP 160/113; PULSE 65; RESP 18; TEMP 36.5; O2SAT 96
[2024-01-18 21:00] VITALS: BMI 15.0
--- NOTE | 2024-01-18 21:16 | PC.NURSE ---
2045 - An officer from the supervisor forming and tempering's department her with security to serve 96 hour paperwork to patient. This nurse witnessed the serving of the 96 hour hold. One on one sitter placed in patient room.
[2024-01-18] MEDS: heparin 5,000 unit/mL INJ 1 mL 5000 UNIT SUBCUT (21:53)
[2024-01-18 22:07] VITALS: RESP 18
[2024-01-18] MEDS: HYDROmorphone 1 mg/mL INJ 1 mL 0.5 MG IVP (22:07)
[2024-01-18] MEDS: cefTRIAXone 2,000 MG in sodium chloride 0.9% (plus) 50 ML 100 MG IV (22:30)
[2024-01-18] MEDS: sodium chloride 0.9% 1,000 ML 75 ML IV (22:30)
[2024-01-18] MEDS: LORazepam 2 mg/mL INJ 10 mL MDV 1 MG IVP (23:24)
--- NOTE | 2024-01-19 04:15 | PC.NURSE ---
This nurse rounded on the patient at 0330, pt was resting in bed with visible breaths and appeared comfortable. 1:1 torrie Hirsch came and got this nurse at 0358 and stated the patient had . Upon entering the room the patient had no chest rise or fall and was not breathing. This nurse listened for heart and lung sounds and confirmed the patient had with Yunior Berry RN @ 0400.
--- NOTE | 2024-01-19 05:06 | PC.NURSE ---
this nurse called John Tee, A friend labeled on the patients PHI, in search of information regarding family members to notify of . knew of a brother she would try and contact but stated most of her family did not have involvement with the patient. she knew of a sister and daughter but was unable to provide information regarding contacting them.
--- NOTE | 2024-01-19 06:15 | PC.NURSE ---
post mortem care was preformed, patient was transferred to [facility] with belongings at 0604 with warehouse supervisor 3rd shift.
--- NOTE | 2024-01-19 06:18 | PC.NURSE ---
Pt at 0400, Physician technical services consultant, Floatman and MTS notified. MTS and Saving sight declined and released pt. The only contact information listed in the chart was the patient herself. The only other person listed on the PHI was John Tee. SCHUYLER Horn called Ms. Tee to see if she knew of any family that we could notify. This nurse called the Landlord listed for the patient and he stated that the patient had a daughter and that the [facility]'s department might know how to contact her daughter. Called the Agricultural Equipment Sales Engineer's office and they did not have any family information listed for the patient. This nurse called [facility] Hospice nurse to nitify her of the patient's passing (the patient was in hospice care until she was released in order to come to the hospital). The hospice nurse did have the patient's daughter and sister's contact information. Daughter - Piedad Mills [phone] Sister - Marion Joyce [phone] This nurse called both the daughter and sister and left a message at both numbers asking them to contact this floor as we needed to discuss information about a family member with them. So far they have not called back. Patient was taken to the [facility] at 0530.
--- NOTE | 2024-01-19 08:15 | PC.NURSE ---
Patients sister, Diamond called back and was able to discuss the events through the night. She said that she would contact the patient's daughter, Piedad, and notify her of patient's passing. Asked about which home to send the patient to and she said she would discuss it with the daughter and call us back. Updated Sports Teacher.
[2024-01-19 12:14] LABS: Bacillus cereus group Not Detected (NOT DETECT); Bacillus subtillis group Not Detected (NOT DETECT); Corynebacterium Not Detected (NOT DETECT); Cutibacterium acnes (P.acnes) Not Detected (NOT DETECT); Enterococcus Not Detected (NOT DETECT); Enterococcus faecalis Not Detected (NOT DETECT); Enterococcus faecium Not Detected (NOT DETECT); Lactobacillus species Not Detected (NOT DETECT); Listeria Not Detected (NOT DETECT); Listeria monocytogenes Not Detected (NOT DETECT); Micrococcus Not Detected (NOT DETECT); Pan Candida Not Detected (NOT DETECT); Pan Gram-Negative Not Detected (NOT DETECT); Staphylococcus epidermidis Not Detected (NOT DETECT); Staphylococcus lugdunensis Not Detected (NOT DETECT); Staphylococcus species Not Detected (NOT DETECT); Streptococcus agalactiae Not Detected (NOT DETECT); Streptococcus anginosus group Not Detected (NOT DETECT); Streptococcus pneumoniae Not Detected (NOT DETECT); Streptococcus pyogenes Detected (NOT DETECT); Streptococcus species Detected (NOT DETECT)
--- NOTE | 2024-01-19 13:30 | PM.DDS ---
Discharge Providers DDS Date of Admission: 01/18/24 18:50 Date Summary Completed: 01/19/24 Attending Provider at Admission: Lola Tillman MD Attending Provider at Discharge: Lola Tillman MD Primary Care Provider: MENA Nieto Diagnoses Hospital Diagnoses (1) Anxiety: (2) Bipolar depression: (3) Acute renal failure: Qualifiers: Acute renal failure type: unspecified Qualified Code(s): N17.9 - Acute kidney failure, unspecified (4) Hypercalcemia: (5) Leucocytosis: (6) Ductal carcinoma of left breast: (7) COPD, mild: (8) Insomnia: (9) Unable to care for self: (10) Hospice care patient: (11) Metabolic acidosis: (12) Acute kidney injury superimposed on chronic kidney disease: Reason for Visit Reason for Visit spine cancer, pain Summary Summary Summary: Guera Mills is a 53 year old female who has been on hospice for her breast cancer with metastatic lesion, she was released from the hospital today when illegal drugs were found in her motel room, she was put on 96-hour hold by the motel ice guard skating rink, patient does not have any family, stating that she has a brother who lives in [place] but he is not able to drive. Patient was sent to the hospital when illegal drugs were noticed in her possession. Patient was also selling her hospice medications/opioids. In the ER she is not very alert and oriented, only answering simple question She is constantly moaning in pain Nurse received a phone call regarding possession of illegal drugs, 1 nurse from [facility] checked on her today they found illegal drugs such as methamphetamine and also noticed that her controlled substance were missing to prescribe for the patient for pain management, reportedly they have been stolen 3 times She was living in a care home in [facility] until a week ago when she was released from there as well for possession of methamphetamine. She carries history of drug overdose as well Patient was admitted for comfort care in the hospital Additional Data Confirmation of as documented by pronouncing clinician: no pulse, no respirations, no heart sounds and pupils fixed and dilated Family: not available Additional persons at bedside: nursing staff Attending/PCP notified?: I am attending Was code activated?: No Autopsy requested?: No Advance directives?: No Hospice patient?: Yes Discharge Plan Discharge Patient Disposition: Condition: Stable DS Attestations Time Spent in /Discharge Care*: greater than 30 min Quality - AMI: AMI present?: No Quality - Stroke: CVA present?: No Quality - VTE: VTE present?: No Coding Level of Care Code Acute Code for Chg Fwd Diagnoses Anxiety F41.9 Bipolar depression F31.9 Acute renal failure N17.9 Acute renal failure type: unspecified Hypercalcemia E83.52 Leucocytosis D72.829 Ductal carcinoma of left breast C50.912 COPD, mild J44.9 Insomnia G47.00 Unable to care for self Z78.9 Hospice care patient Z51.5 Metabolic acidosis E87.20 Acute kidney injury superimposed on chronic kidney disease N17.9; N18.9
== END 2024-01-19 06:05 | disposition expired | DRG 641 ==
LOC: ER 17:35 → MEDSURG 18:50
PROVIDERS: Admitting Provider Internal Medicine; Emergency Provider Physician Assistant; PCP Nurse Practitioner; Visit Provider Internal Medicine
DX: E87.21 Acute metabolic acidosis (principal); N17.9 Acute kidney failure, unspecified; C79.51 Secondary malignant neoplasm of bone; E46 Unspecified protein-calorie malnutrition; R64 Cachexia; Z59.01 Sheltered homelessness; J44.9 Chronic obstructive pulmonary disease, unspecified; D72.829 Elevated white blood cell count, unspecified; E83.52 Hypercalcemia; Z51.5 Encounter for palliative care; E87.1 Hypo-osmolality and hyponatremia; Z72.0 Tobacco use; I12.9 Hypertensive chronic kidney disease with stage 1 through stage 4 chronic kidney disease, or unspecified chronic kidney disease; N18.9 Chronic kidney disease, unspecified; F41.9 Anxiety disorder, unspecified; F31.9 Bipolar disorder, unspecified; C50.912 Malignant neoplasm of unspecified site of left female breast
CPT/HCPCS: 36415; 51702; 71045; 73502; 80053; 80306; 81003; 82550; 83605; 85025; 87040; 87150; 87205; 96361; 96372; 96374; 96375; 99285; J0696; J1170; J1200; J1644; J2060; J3370; J7030; J7050; J7120